=== PATIENT | male | born 1980 | race Asian ===

== ENCOUNTER 2017-05-25 20:01 | Emergency (ER) | payer MEDICAID, OTHER ==
[~2017-05-25] VITALS: Ht 172.7 cm; Wt 68.0 kg
[~2017-05-25 20:01] MED LIST: KEFLEX500 MG ORAL
[2017-05-25 20:07] VITALS: BP 118/70
[2017-05-25] MEDS ORDERED: Sodium Chloride 500ML 500 ML IV ONE (20:30)
[2017-05-25 20:45] LABS: BASOPHILS % (AUTO) 1.2 % (0.0-2.0); EOSINOPHILS % (AUTO) 0.8 % (0.0-3.0); MEAN CORPUSCULAR HEMOGLOBIN 32.8 PG (27.0-31.0); MEAN CORPUSCULAR HGB CONC 33.9 G/DL (32.0-36.0); MEAN CORPUSCULAR VOLUME 97 FL (80-99); MEAN PLATELET VOLUME 7.2 FL (6.5-10.1); MONOCYTES % (AUTO) 4.2 % (1.0-10.0); NEUTROPHILS % (AUTO) 44.8 % (45.0-75.0); PLATELET COUNT 143 K/UL (150-450); RED BLOOD COUNT 4.21 M/UL (4.70-6.10); RED CELL DISTRIBUTION WIDTH 11.4 % (11.6-14.8); WHITE BLOOD COUNT 8.4 K/UL (4.8-10.8)
[2017-05-25 20:55] LABS: ANION GAP 8 mmol/L (5-15); CALCIUM 8.5 MG/DL (8.5-10.1); CARBON DIOXIDE 28 MMOL/L (21-32); CHLORIDE 106 MMOL/L (98-107); CREATININE 1.3 MG/DL (0.55-1.30); GLOMERULAR FILTRATION RATE > 60 mL/min (>60); POTASSIUM 3.8 MMOL/L (3.5-5.1); SODIUM 142 MMOL/L (136-145)
[2017-05-25 21:06] LABS: ALANINE AMINOTRANSFERASE 65 U/L (12-78); ALCOHOL 187 mg/dL; ASPARTATE AMINO TRANSFERASE 50 U/L (15-37); TOTAL PROTEIN 8.2 G/DL (6.4-8.2)
[2017-05-25 21:07] LABS: ACETAMINOPHEN < 2 MCG/ML (10-30)
[2017-05-25 22:07] VITALS: BP 114/61
[2017-05-25 22:44] VITALS: BP 114/61
--- NOTE | 2017-05-25 22:49 | Emergency Room Report ---
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 Allergies: Coded Allergies: No Known Allergies (Unverified , 02/28/15) Patient History Past Medical History: none Past Surgical History: none Pertinent Family History: none Social History: Reports: alcohol use Immunizations: UTD Reviewed Nursing Documentation: PMH: Agreed, PSxH: Agreed Nursing Documentation-PMH Past Medical History: No History, Except For Hx Cardiac Problems: No - Testicular cancer Review of Systems All Other Systems: negative except mentioned in HPI Physical Exam Vital Signs Date Time Temp Pulse Resp B/P (MAP) Pulse Ox O2 Delivery O2 Flow Rate FiO2 05/25/17 19:55 98.2 100 16 118/70 98 Room Air Sp02 EP Interpretation: reviewed, normal General Appearance: normal inspection, well appearing, no apparent distress, alert, GCS 15, non-toxic Head: normocephalic, atraumatic Eyes: bilateral eye PERRL, bilateral eye EOMI ENT: normal ENT inspection, hearing grossly normal, normal voice Neck: normal inspection, full range of motion, supple, no bony tend Respiratory: normal inspection, lungs clear, normal breath sounds, no respiratory distress, no retraction, no wheezing Cardiovascular #1: regular rate, rhythm, no edema Gastrointestinal: normal inspection, normal bowel sounds, non tender, soft, no guarding, no hernia Genitourinary: no CVA tenderness Musculoskeletal: normal inspection, back normal, normal range of motion, Kyle' s Sign negative Neurologic: normal inspection, alert, responsive, speech normal Psychiatric: normal inspection, judgement/insight normal, mood/affect normal Skin: normal inspection, normal color, no rash Medical Decision Making Diagnostic Impression: Primary Impression: Acute alcoholic intoxication Qualified Codes: F10.929 - Alcohol use, unspecified with intoxication, unspecified ER Course ETOH level 187 Patient observed in ER for ~3 hours until sober Ambulating with steady gait, tolerating PO Asked for, received sandwich Labs reviewed: no leuks. H&H stable. No metabolic abnormalities. Mild AST elevation Advised on ETOH abuse ER course: Patient has remained stable during ED stay. Patient is to be discharged to home. Patient is instructed to follow up with their primary care doctor within 5 days. Strict return precautions discussed with patient such as fever, chills, worsening/severe pain, nausea, vomiting, which may indicate severe illness. Patient verbalizes understanding and agrees with plan. Please note that this Emergency Department Report was dictated using [employer] technology software, occasionally this can lead to erroneous entry secondary to interpretation by the dictation equipment Last Vital Signs Date Time Temp Pulse Resp B/P (MAP) Pulse Ox O2 Delivery O2 Flow Rate FiO2 05/25/17 22:07 98.2 89 18 114/61 97 Room Air Status: improved Disposition: HOME, SELF-CARE Condition: Improved Referrals: NON PHYSICIAN (PCP) Patient Instructions: Alcohol Intoxication, [id number] ROLF NG M.D. May 25, 2017 22:49
== END 2017-05-25 22:44 | disposition home or self-care (01) ==
LOC: EDBD 20:01 → EMR 21:17
DX: F10.129 Alcohol abuse with intoxication, unspecified (principal); Z85.47 Personal history of malignant neoplasm of testis
CPT/HCPCS: 36415; 80053; 80329; 85025; 96361; 96374; 99284

== ENCOUNTER 2018-01-23 02:57 | Emergency (ER) | payer OTHER ==
[~2018-01-23] VITALS: Ht 172.7 cm; Wt 72.6 kg
[2018-01-23] MEDS ORDERED: PROTONIX40 MG ORAL (03:00)
[2018-01-23] MEDS ORDERED: TRAMADOL HCL E100 MG ORAL (03:00)
[2018-01-23] MEDS ORDERED: INDERAL LA60 MG ORAL (03:00)
[2018-01-23 03:05] VITALS: BP 106/62
[2018-01-23] MEDS ORDERED: Pantoprazole Inj IVP ONE (03:15)
--- NOTE | 2018-01-23 03:18 | Emergency Room Report ---
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 He is currently under chemotherapy. He also has history of alcohol abuse with esophageal varices diagnosed on endoscopy about a year ago. He presents with chief complaint of vomiting blood. He was drinking vodka tonight and had vomiting and noticed about half a couple blood. Similar symptom in the past. No pain. No fever or chills. Still for little nauseous. He drank a pint of vodka tonight. Denies any drug use. No diarrhea. No black stool. Allergies: Coded Allergies: No Known Allergies (Unverified , 02/28/15) Patient History Past Medical History: see triage record, old chart reviewed Past Surgical History: other Pertinent Family History: none Social History: Reports: alcohol use Immunizations: other Reviewed Nursing Documentation: PMH: Agreed; PSxH: Agreed Nursing Documentation-PMH Hx Cardiac Problems: No - Testicular cancer Hx Gastrointestinal Problems: Yes - TESTICULAR CA Review of Systems Eye: Denies: eye pain, blurred vision ENT: Denies: ear pain, nose congestion, throat swelling Respiratory: Denies: cough, shortness of breath Cardiovascular: Denies: chest pain, palpitations Gastrointestinal: Reports: nausea, vomiting, hematemesis; Denies: abdominal pain, diarrhea Musculoskeletal: Denies: back pain, joint pain Skin: Denies: rash Neurological: Denies: headache, numbness Endocrine: Denies: increased thirst, increased urine Hematologic/Lymphatic: Denies: easy bruising All Other Systems: negative except mentioned in HPI Physical Exam Vital Signs Date Time Temp Pulse Resp B/P (MAP) Pulse Ox O2 Delivery O2 Flow Rate FiO2 01/23/18 02:54 98.0 74 16 108/74 98 Room Air 98.1 vitals normal Sp02 EP Interpretation: reviewed, normal General Appearance: well appearing, no apparent distress, alert, other - strong smell of alcoholic beverage Head: normocephalic, atraumatic Eyes: bilateral eye PERRL, bilateral eye EOMI ENT: hearing grossly normal, normal pharynx Neck: full range of motion, supple, no meningismus Respiratory: chest non-tender, lungs clear, normal breath sounds Cardiovascular #1: regular rate, rhythm, no murmur Gastrointestinal: normal bowel sounds, non tender, no mass, no organomegaly, no bruit, non-distended Musculoskeletal: back normal, gait/station normal, normal range of motion Psychiatric: mood/affect normal Skin: warm/dry Medical Decision Making Diagnostic Impression: Primary Impression: Hematemesis Qualified Codes: K92.0 - Hematemesis Additional Impression: Acute alcoholic intoxication Qualified Codes: F10.929 - Alcohol use, unspecified with intoxication, unspecified ER Course Patient presents with hematemesis. He said that he has esophageal variceal seen on EGD. This is secondary to his alcohol abuse. No evidence of continual bleeding. Hemoglobin stable. No evidence of any perforation on chest x-ray. He is already on a proton pump inhibitor. We'll discharge home in the morning. Lab Results Impression labs normal Chest X-Ray Diagnostic Results Chest X-Ray Diagnostic Results : Chest X-Ray Ordered: Yes # of Views/Limited/Complete: 1 View Indication: Chest Pain EP Interpretation: Yes Interpretation: no consolidation, no effusion, no pneumothorax, no acute cardiopulmonary disease Impression: No acute disease Electronically Signed by: Tony Aragon MD Last Vital Signs Date Time Temp Pulse Resp B/P (MAP) Pulse Ox O2 Delivery O2 Flow Rate FiO2 01/23/18 03:05 98.1 79 18 106/62 95 Room Air 98.1 Status: improved Disposition: HOME, SELF-CARE Condition: Stable Additional Instructions: Abstain from alcohol. Follow-up with your DrSterling in 2-3 days for recheck. Return if worse. TONY ARAGON M.D. Jan 23, 2018 03:18
[2018-01-23 03:21] LABS: EOSINOPHILS % (AUTO) 1.8 % (0.0-3.0); HEMOGLOBIN 12.9 G/DL (14.2-18.0); LYMPHOCYTES % (AUTO) 49.9 % (20.0-45.0); MEAN CORPUSCULAR VOLUME 92 FL (80-99); MONOCYTES % (AUTO) 8.4 % (1.0-10.0); NEUTROPHILS % (AUTO) 38.9 % (45.0-75.0); PLATELET COUNT 154 K/UL (150-450); RED BLOOD COUNT 4.14 M/UL (4.70-6.10); RED CELL DISTRIBUTION WIDTH 11.6 % (11.6-14.8); WHITE BLOOD COUNT 7.2 K/UL (4.8-10.8)
[2018-01-23 03:49] LABS: APPEARANCE,URINE CLEAR; BILIRUBIN, URINE NEGATIVE (NEGATIVE); GLUCOSE, URINE (UA) NEGATIVE (NEGATIVE); KETONES,URINE NEGATIVE (NEGATIVE); LEUKOCYTE ESTERASE ,URINE NEGATIVE (NEGATIVE); NITRITE,URINE NEGATIVE (NEGATIVE); PH,URINE 5 (4.5-8.0); UROBILINOGEN,URINE NORMAL (NORMAL)
[2018-01-23 03:53] LABS: COLOR,URINE YELLOW; PROTEIN,URINE NEGATIVE (NEGATIVE)
[2018-01-23 03:53] LABS: ANION GAP 10 mmol/L (5-15); BLOOD UREA NITROGEN 21 mg/dL (7-18); CALCIUM 8.3 MG/DL (8.5-10.1); CARBON DIOXIDE 26 MMOL/L (21-32); CHLORIDE 108 MMOL/L (98-107); POTASSIUM 3.9 MMOL/L (3.5-5.1); SODIUM 144 MMOL/L (136-145)
[2018-01-23 03:58] LABS: ALANINE AMINOTRANSFERASE 63 U/L (12-78); ALBUMIN 3.8 G/DL (3.4-5.0); ALKALINE PHOSPHATASE 86 U/L (46-116); ASPARTATE AMINO TRANSFERASE 61 U/L (15-37); BILIRUBIN,TOTAL 0.9 MG/DL (0.2-1.0)
[2018-01-23 04:04] LABS: INR 1.1 (0.9-1.1)
[2018-01-23 05:15] VITALS: BP 106/68
[2018-01-23 05:42] VITALS: BP 106/68
--- NOTE | 2018-01-23 09:31 | Diagnostic Imaging Report ---
Indication: Chest pain Technique: XRAY Chest 1v Comparison: None Findings: Heart size and mediastinal contours are within normal limits. There is no focal consolidation, pneumothorax or pleural effusion. Osseous structures demonstrate no acute abnormality. Impression: No radiographic evidence of acute cardiopulmonary disease.
== END 2018-01-23 05:42 | disposition home or self-care (01) ==
LOC: EDBD 02:57 → EMR 03:17
DX: C62.90 Malignant neoplasm of unspecified testis, unspecified whether descended or undescended (principal); F10.929 Alcohol use, unspecified with intoxication, unspecified; K92.0 Hematemesis
CPT/HCPCS: 36415; 71045; 80053; 80307; 80329; 81001; 85025; 85610; 85730; 96361; 96374; 96375; 99284; C9113; J2405

== ENCOUNTER 2018-09-15 17:55 | Emergency (ER) | payer OTHER ==
[~2018-09-15] VITALS: Ht 175.3 cm; Wt 81.6 kg
[2018-09-15 17:55] VITALS: BP 141/82
[~2018-09-15 17:55] MED LIST changes: +INDERAL LA60 MG ORAL; +PROTONIX40 MG ORAL; +TRAMADOL HCL E100 MG ORAL
--- NOTE | 2018-09-15 18:00 | NUR ---
ED Nurse Note: BROUGHT IN BY RA 29 FROM A BAR DUE TO ETOH. PER EMS, PT HAS BEEN TO MANY ED FOR ETOH FOR PAST FOUR DAYS. PT IS AROUSAL TO VOICE BUT DOES NOT RESPOND TO ANY ANSWERS. RIGHT EJ 18G WAS PLACED BY EMS.
--- NOTE | 2018-09-15 18:02 | NUR ---
ED Nurse Note: Addendum: 09/15/18 at 1824 by [email or web address] ED Nurse Note: PER AZUL BS IS 134
--- NOTE | 2018-09-15 18:15 | NUR ---
ED Nurse Note: ALL BLOOD SPECIMENS AND URINE COLLECTED AND SENT DOWN TO THE LAB.
--- NOTE | 2018-09-15 18:29 | Emergency Room Report ---
History of Present Illness General Chief Complaint: Alcohol Intoxication Source: EMS Present Illness HPI Patient presents with altered level of consciousness and alleged alcohol ingestion. The patient's been transported by paramedics four times in the last 4 days for the same problem. They deny seeing any head trauma. There is no seizure activity. The patient's been evaluated here recently for alcohol intoxication. The patient is unable to give a history at this time. Even with sternal rub the patient will not answer. He does open his eyes and try to lift up his head at that time. The patient does have a positive gag. Eval for punching window 2014. Had delirium and d/c to father at that time ( eval by psych). Seen for hematemesis 02/02. Alleged varices. Allergies: Coded Allergies: No Known Allergies (Unverified , 02/28/15) Patient History Limited by: medical condition Past Medical History: see triage record, old chart reviewed Social History: Reports: alcohol use Social History Narrative has an address Reviewed Nursing Documentation: PMH: Agreed; PSxH: Agreed Nursing Documentation-PMH Hx Cardiac Problems: No - Testicular cancer Hx Gastrointestinal Problems: Yes - TESTICULAR CA Review of Systems All Other Systems: limited Physical Exam Vital Signs Date Time Temp Pulse Resp B/P (MAP) Pulse Ox O2 Delivery O2 Flow Rate FiO2 09/15/18 17:49 99.0 110 16 148/100 100 09/15/18 17:55 Room Air Sp02 EP Interpretation: reviewed, normal General Appearance: no apparent distress, lethargic - not answering questions Head: normocephalic, atraumatic Eyes: bilateral eye abnormal EOM - nystagmus, bilateral eye Scleral Injection ENT: moist mucus membranes Neck: supple Respiratory: lungs clear, normal breath sounds Cardiovascular #1: regular rate, rhythm Cardiovascular #2: 2+ radial (R) Gastrointestinal: normal inspection, non tender, no mass, non-distended, decreased bowel sounds Musculoskeletal: back normal, normal range of motion Neurologic: responsive - minimally , other - not speaking, min response to pain , + gag Psychiatric: other - stupor Skin: normal inspection, warm/dry Medical Decision Making Diagnostic Impression: Primary Impression: Acute alcoholic intoxication Qualified Codes: F10.929 - Alcohol use, unspecified with intoxication, unspecified Additional Impression: Suicidal ideation ER Course Patient presents with alcohol and decreased mentation. Differential includes colic intoxication, electrolyte abnormality, brain bleed amongst others. Evaluation will be with EKG, CT the head chest x-ray, labs. The patient will receive IV hydration here. He'll need reevaluation when he is sober. BAL elevated. Slight anemia. CMP with elevated liver function tests, slight hypernatremia and hypokalemia, elevated CPK. Patient improved. States thoughts of ending his life. No plan. Will need repeat BAL and eval regarding SI in AM. Placed on medical hold. Asked if took [facility] meds - states librium and ativan. Never other antipsychotics according to patient. Signed out to Dr. Brewer. Laboratory Tests Test 09/15/18 18:10 White Blood Count 8.3 K/UL (4.8-10.8) Red Blood Count 4.16 M/UL (4.70-6.10) L Hemoglobin 13.8 G/DL (14.2-18.0) L Hematocrit 38.5 % (42.0-52.0) L Mean Corpuscular Volume 93 FL (80-99) Mean Corpuscular Hemoglobin 33.1 PG (27.0-31.0) H Mean Corpuscular Hemoglobin Concent 35.8 G/DL (32.0-36.0) Red Cell Distribution Width 12.6 % (11.6-14.8) Platelet Count 167 K/UL (150-450) Mean Platelet Volume 5.0 FL (6.5-10.1) L Neutrophils (%) (Auto) 45.3 % (45.0-75.0) Lymphocytes (%) (Auto) 39.8 % (20.0-45.0) Monocytes (%) (Auto) 12.4 % (1.0-10.0) H Eosinophils (%) (Auto) 0.9 % (0.0-3.0) Basophils (%) (Auto) 1.7 % (0.0-2.0) Urine Color Pale yellow Urine Appearance Clear Urine pH 6 (4.5-8.0) Urine Specific [place] 1.005 (1.005-1.035) Urine Protein Negative (NEGATIVE) Urine Glucose (UA) Negative (NEGATIVE) Urine Ketones Negative (NEGATIVE) Urine Blood Negative (NEGATIVE) Urine Nitrite Negative (NEGATIVE) Urine Bilirubin Negative (NEGATIVE) Urine Urobilinogen Normal MG/DL (0.0-1.0) Urine Leukocyte Esterase Negative (NEGATIVE) Sodium Level 147 MMOL/L (136-145) H Potassium Level 3.1 MMOL/L (3.5-5.1) L Chloride Level 105 MMOL/L (98-107) Carbon Dioxide Level 24 MMOL/L (21-32) Anion Gap 18 mmol/L (5-15) H Blood Urea Nitrogen 15 mg/dL (7-18) Creatinine 1.0 MG/DL (0.55-1.30) Estimate Glomerular Filtration Rate > 60 mL/min (>60) Glucose Level 167 MG/DL (74-106) H Calcium Level 8.6 MG/DL (8.5-10.1) Total Bilirubin 1.1 MG/DL (0.2-1.0) H Direct Bilirubin 0.1 MG/DL (0.0-0.3) Aspartate Amino Transferase (AST) 127 U/L (15-37) H Alanine Aminotransferase (ALT) 68 U/L (12-78) Alkaline Phosphatase 121 U/L (46-116) H Total Creatine Kinase 484 U/L (26-308) H Total Protein 7.6 G/DL (6.4-8.2) Albumin 3.7 G/DL (3.4-5.0) Globulin 3.9 g/dL Urine Opiates Screen Negative (NEGATIVE) Urine Barbiturates Screen Negative (NEGATIVE) Phencyclidine (PCP) Screen Negative (NEGATIVE) Urine Amphetamines Screen Negative (NEGATIVE) Urine Benzodiazepines Screen Negative (NEGATIVE) Urine Cocaine Screen Negative (NEGATIVE) Urine Marijuana (THC) Screen Negative (NEGATIVE) Serum Alcohol 473 mg/dL EKG Diagnostic Results Rate: tachycardiac Rhythm: NSR ST Segments: no acute changes - R axis Rhythm Strip Diag. Results EP Interpretation: yes Rhythm: no PVC's, no ectopy, other - ST Chest X-Ray Diagnostic Results Chest X-Ray Diagnostic Results : Chest X-Ray Ordered: Yes # of Views/Limited/Complete: 1 View Indication: Other EP Interpretation: Yes Interpretation: no consolidation, no effusion, no pneumothorax Impression: No acute disease CT/MRI/US Diagnostic Results CT/MRI/US Diagnostic Results : Imaging Test Ordered: head Impression no IC abnormality Last Vital Signs Date Time Temp Pulse Resp B/P (MAP) Pulse Ox O2 Delivery O2 Flow Rate FiO2 09/15/18 19:17 110 22 Room Air 09/15/18 19:17 99.0 134/81 95 Status: improved Disposition: XFER TO PSYCH HOSP/UNIT Condition: Improved Yossi Ivey MD Sep 15, 2018 18:29
[2018-09-15 18:31] LABS: BASOPHILS % (AUTO) 1.7 % (0.0-2.0); EOSINOPHILS % (AUTO) 0.9 % (0.0-3.0); HEMATOCRIT 38.5 % (42.0-52.0); HEMOGLOBIN 13.8 G/DL (14.2-18.0); LYMPHOCYTES % (AUTO) 39.8 % (20.0-45.0); MEAN CORPUSCULAR VOLUME 93 FL (80-99); MONOCYTES % (AUTO) 12.4 % (1.0-10.0); NEUTROPHILS % (AUTO) 45.3 % (45.0-75.0); PLATELET COUNT 167 K/UL (150-450); RED BLOOD COUNT 4.16 M/UL (4.70-6.10); RED CELL DISTRIBUTION WIDTH 12.6 % (11.6-14.8); WHITE BLOOD COUNT 8.3 K/UL (4.8-10.8)
[2018-09-15 18:34] LABS: APPEARANCE,URINE CLEAR; BILIRUBIN, URINE NEGATIVE (NEGATIVE); COLOR,URINE PALE YELLOW; GLUCOSE, URINE (UA) NEGATIVE (NEGATIVE); KETONES,URINE NEGATIVE (NEGATIVE); LEUKOCYTE ESTERASE ,URINE NEGATIVE (NEGATIVE); NITRITE,URINE NEGATIVE (NEGATIVE); PH,URINE 6 (4.5-8.0); PROTEIN,URINE NEGATIVE (NEGATIVE); UROBILINOGEN,URINE NORMAL MG/DL (0.0-1.0)
--- NOTE | 2018-09-15 18:42 | NUR ---
ED Nurse Note: PT SENT DOWN FOR CT.
[2018-09-15 18:49] LABS: ANION GAP 18 mmol/L (5-15); BLOOD UREA NITROGEN 15 mg/dL (7-18); CALCIUM 8.6 MG/DL (8.5-10.1); CARBON DIOXIDE 24 MMOL/L (21-32); CHLORIDE 105 MMOL/L (98-107); POTASSIUM 3.1 MMOL/L (3.5-5.1); SODIUM 147 MMOL/L (136-145)
[2018-09-15 18:59] LABS: ALANINE AMINOTRANSFERASE 68 U/L (12-78); ALBUMIN 3.7 G/DL (3.4-5.0); ALKALINE PHOSPHATASE 121 U/L (46-116); ASPARTATE AMINO TRANSFERASE 127 U/L (15-37); BILIRUBIN,TOTAL 1.1 MG/DL (0.2-1.0); CREATINE KINASE 484 U/L (26-308)
[2018-09-15 19:03] LABS: BILIRUBIN,DIRECT 0.1 MG/DL (0.0-0.3)
[2018-09-15 19:17] VITALS: BP 134/81
--- NOTE | 2018-09-15 19:17 | NUR ---
ED Nurse Note: received report from RN tanesha, pt currently sleeping but arousable to shake and voice, pt AA&ox3, unable to state time at this time, pt lethargic and drowsy, PERRLA, skin warm and dry, resp even and unlabored on RA, -n/v/d at this time, VSS, will cont monitor. pt cleaned and turned and changed into new gown, provided w/ warm blanket for comfort. pt advised to notify staff if needed assist.
--- NOTE | 2018-09-15 19:17 | NUR ---
HAND-OFF: Report given to LAWRENCE Beckman. No s/s of distress.
--- NOTE | 2018-09-15 22:52 | NUR ---
ED Nurse Note: patient resting comfortably, IV hydration running.
--- NOTE | 2018-09-15 23:15 | NUR ---
ED Nurse Note: Patient able to ambulate to restroom, minimal assist.
--- NOTE | 2018-09-15 23:55 | NUR ---
ED Nurse Note: Patient sleeping, no s/s of acute distress.
--- NOTE | 2018-09-16 02:25 | NUR ---
ED Nurse Note: Patient resting comfortably. IV fluids running.
[2018-09-16] MEDS ORDERED: LORazepam Inj 2mg/ml 1ml IV ONE ×2 (03:15→09:45)
--- NOTE | 2018-09-16 03:30 | NUR ---
ED Nurse Note: Patient is resting comfortably, no s/s of acute distress.
[2018-09-16] MEDS ORDERED: Mylanta II UD 30ml ORAL ONE (03:45)
[2018-09-16] MEDS ORDERED: Dicyclomine HCl 10mg/5ml oral soln ORAL ONE (03:45)
[2018-09-16] MEDS ORDERED: Lidocaine 2% Visc 15ml soln ORAL ONE (03:45)
[2018-09-16] MEDS ORDERED: Morphine Sulfate 4mg/ml Inj (IV USE ONLY) IVP ONE (04:15)
--- NOTE | 2018-09-16 04:42 | NUR ---
ED Nurse Note: Patient tolerated medication well, has no complaints of pain at this time.
--- NOTE | 2018-09-16 06:20 | NUR ---
ED Nurse Note: Patient request more pain medication, medication administered at this time, will reassess pain shortly.
[2018-09-16] MEDS ORDERED: Ketorolac 30mg Inj IV ONE (06:30)
--- NOTE | 2018-09-16 07:05 | NUR ---
ED Nurse Note: received patient in bed. patient is resting comfortably in bed, in no acute distress. RT EJ IV access is patent, dry, intact, without any complication.
--- NOTE | 2018-09-16 08:29 | NUR ---
ED Nurse Note: patient ambulated to use the restroom with very minimal assistance.
--- NOTE | 2018-09-16 08:31 | NUR ---
ED Nurse Note: patient is alert and awake x4, ambulatory with minimal assistance. patient c/o abdominal pain 03/27, notified Dr. Lopez.
--- NOTE | 2018-09-16 11:31 | Diagnostic Imaging Report ---
Indication: Chest pain Technique: One view of the chest Comparison: 01/23/2018 Findings: The heart is borderline enlarged. Lungs and pleural spaces are clear. Impression: No acute process
--- NOTE | 2018-09-16 11:33 | Diagnostic Imaging Report ---
Indication: Altered level of consciousness Technique: Continuous helical CT scanning of the head was performed without intravenous contrast material. Axial and coronal 5 mm sections were generated. Radiation dose was minimized using automated exposure control Dose: Total Dose Length Product - DLP 1369.[address] Dose Index - CTDIvol(s) 70.38 mGy. Comparison: none Findings: There is slight image degradation due to motion artifact. The ventricular system is normal in size and configuration. There is no shift of midline structures. No abnormal extra-axial fluid collections are noted. There is no evidence of intracerebral bleeding. No other abnormal high or low density areas are noted within the brain. Normal louis-white differentiation. The mastoids are clear. The calvarium is intact. Impression: Normal CT scan of the head without contrast material. This agrees with the preliminary interpretation provided overnight by [facility]. The CT scanner at [facility] is accredited by the [employer] and the scans are performed using protocols designed to limit radiation exposure to as low as reasonably achievable to attain images of sufficient resolution adequate for diagnostic evaluation.
--- NOTE | 2018-09-16 11:51 | NUR ---
ED Nurse Note: patient is eating lunch tray. water, juice also provided
--- NOTE | 2018-09-16 12:20 | NUR ---
ED Nurse Note: report given to Joe BRAVO at [place].
[2018-09-16] MEDS ORDERED: LORazepam Inj 2mg/ml 1ml ONE (13:08)
--- NOTE | 2018-09-16 13:15 | NUR ---
ED Nurse Note: patient given ativan 1mg IVP as ordered by Dr. Lopez. VSS. patient tolerated medication without any complication.
[2018-09-16 13:16] VITALS: BP 156/89
[2018-09-16 13:17] VITALS: BP 156/89
--- NOTE | 2018-09-16 13:19 | NUR ---
ER DISCHARGE NOTE: Patient is cleared to be tranferred to [facility] per ERMD, pt is aox4, on room air, with stable vital signs. pt id band and iv site removed without complications, no bleeding noted. pt is able to ambulate with steady gait. all belongings given to ambulance personnel.
--- NOTE | 2018-09-17 21:29 | Cardiology Report ---
APPROVED REPORT EKG Measurement Heart [id number] CO [id number] Sinus tachycardia Rightward axis Borderline ECG
== END 2018-09-16 13:19 ==
LOC: EDBD 17:55 → EMR 18:53
DX: F10.129 Alcohol abuse with intoxication, unspecified (principal); R45.851 Suicidal ideations; Z85.47 Personal history of malignant neoplasm of testis
CPT/HCPCS: 36415; 70450; 71045; 80053; 80307; 80329; 81003; 82248; 82550; 85025; 93005; 96361; 96374; 96375; 99284; J1885; J2270; S0028

== ENCOUNTER 2019-03-17 12:00 | Emergency (ER) | payer OTHER ==
[~2019-03-17] VITALS: Ht 172.7 cm; Wt 68.0 kg
[~2019-03-17 12:00] MED LIST changes: +PRILOSEC OTC20 MG ORAL; +ZOFRAN4 M3 ORAL
[2019-03-17] MEDS ORDERED: PROTONIX20 MG ORAL (12:09)
[2019-03-17] MEDS ORDERED: LIBRIUM10 MG ORAL (12:09)
[2019-03-17] MEDS ORDERED: GABAPENTIN300 MG ORAL (12:09)
[2019-03-17] MEDS ORDERED: TRAMADOL HCL50 MG ORAL (12:09)
--- NOTE | 2019-03-17 12:13 | NUR ---
ED Nurse Note: PT BROUGHT IN TO ER TODAY FROM HOME BY RA29. AOX4. PT STATES HE CALLED 911 DUE TO HX OF ALCOHOLISM AND IS SEEKING HELP. PT STATES HE DRANK TWO BOTTLES OF WHISKEY AND MULTIPLE BEERS TODAY. PT STATES HE HAS HX OF GASTRIC VARISCES WELL. PT STATES HE WAS PRESCRIBED LIBRIUM BUT STOPPED TAKING IT DUE TO CONTINUED ALCOHOL CONSUMPTION. PT STATES HE IS FOLLOWING UP WITH HIS PRIMARY DOCTOR REGARDING HIS ALCOHOLISM.
[2019-03-17 12:18] VITALS: BP 132/82
--- NOTE | 2019-03-17 12:22 | NUR ---
ED Nurse Note: SPOKE WITH PT'S NURSE EXECUTIVE, TABITHA, FROM [facility], WHO STATES HE WILL BE COMING TO THE ER TO SEE HIS PT.
[2019-03-17] MEDS ORDERED: Metoclopramide 10mg/2ml Inj IVP ONE (12:30)
[2019-03-17 12:37] LABS: HEMATOCRIT 39.4 % (42.0-52.0); HEMOGLOBIN 13.5 G/DL (14.2-18.0); MEAN CORPUSCULAR VOLUME 92 FL (80-99); PLATELET COUNT 87 K/UL (150-450); RED BLOOD COUNT 4.26 M/UL (4.70-6.10); RED CELL DISTRIBUTION WIDTH 11.3 % (11.6-14.8)
[2019-03-17 12:54] LABS: ANION GAP 15 mmol/L (5-15); BLOOD UREA NITROGEN 12 mg/dL (7-18); CALCIUM 8.3 MG/DL (8.5-10.1); CARBON DIOXIDE 25 MMOL/L (21-32); CHLORIDE 105 MMOL/L (98-107); CREATININE 0.8 MG/DL (0.55-1.30); POTASSIUM 3.4 MMOL/L (3.5-5.1); SODIUM 145 MMOL/L (136-145)
--- NOTE | 2019-03-17 12:55 | NUR ---
ED Nurse Note: XRAY AT BEDSIDE.
[2019-03-17 13:07] LABS: ALANINE AMINOTRANSFERASE 84 U/L (12-78); ALBUMIN 3.8 G/DL (3.4-5.0); ALBUMIN/GLOBULIN RATIO 1.2 (1.0-2.7); ALKALINE PHOSPHATASE 85 U/L (46-116); ASPARTATE AMINO TRANSFERASE 218 U/L (15-37); BILIRUBIN,TOTAL 2.8 MG/DL (0.2-1.0); CREATINE KINASE 1165 U/L (26-308)
[2019-03-17 13:08] LABS: BILIRUBIN,DIRECT 0.2 MG/DL (0.0-0.3)
[2019-03-17 13:45] LABS: APPEARANCE,URINE CLEAR; BILIRUBIN, URINE NEGATIVE (NEGATIVE); COLOR,URINE COLORLESS; GLUCOSE, URINE (UA) NEGATIVE (NEGATIVE); KETONES,URINE NEGATIVE (NEGATIVE); LEUKOCYTE ESTERASE ,URINE NEGATIVE (NEGATIVE); NITRITE,URINE NEGATIVE (NEGATIVE); PH,URINE 6.5 (4.5-8.0); PROTEIN,URINE NEGATIVE (NEGATIVE); UROBILINOGEN,URINE NORMAL MG/DL (0.0-1.0)
--- NOTE | 2019-03-17 14:21 | Diagnostic Imaging Report ---
Indication: Cough Technique: One view of the chest Comparison: 09/14/2018 Findings: Lungs and pleural spaces are clear. Heart size is normal. No significant interim change Impression: No acute process
--- NOTE | 2019-03-17 15:16 | Emergency Room Report ---
History of Present Illness General Chief Complaint: Alcohol Intoxication Source: EMS Present Illness HPI 38-year-old male with history of alcohol abuse and liver cirrhosis is here requesting to be's as he wishes to be sober. Patient reports that he has been drinking alcohol on daily basis for years, her last alcoholic beverage was this morning. Patient reports that he was dropped off here by paramedics and was told by his complex case manager that he is going to be detox in the emergency room. Denies chest pain, shortness of breath, palpitation, abdominal pain, nausea vomiting. Patient reports that he has no thoughts of hurting herself or hurting ADLs. After doing blood work and giving him multiple rounds of fluid patient starts yelling when he has been told that he needs to follow-up with his complex case manager and after talking to his complex case manager patient to go home in order for them to take him to sober living. Patient was in the impression that we are going to detox him at the emergency room. Patient does not wait for second rounds of CK to be drawn and leaves AGAINST MEDICAL ADVICE. Allergies: Coded Allergies: No Known Allergies (Unverified , 02/28/15) Patient History Past Medical History: see triage record Past Surgical History: unable to obtain Pertinent Family History: none Social History: Reports: alcohol use Immunizations: UTD Reviewed Nursing Documentation: PMH: Agreed; PSxH: Agreed Nursing Documentation-PMH Hx Cardiac Problems: No - Testicular cancer Hx Hypertension: Yes Hx Cancer: Yes - TESTICULAR STAGE 2 Hx Gastrointestinal Problems: Yes - TESTICULAR CA Review of Systems All Other Systems: negative except mentioned in HPI Physical Exam Vital Signs Date Time Temp Pulse Resp B/P (MAP) Pulse Ox O2 Delivery O2 Flow Rate FiO2 03/17/19 11:54 98.2 102 16 136/84 (101) 99 Room Air Sp02 EP Interpretation: reviewed, normal General Appearance: no apparent distress, alert, GCS 15, non-toxic Head: normocephalic, atraumatic Eyes: bilateral eye normal inspection, bilateral eye PERRL ENT: hearing grossly normal, normal pharynx, no angioedema, normal voice Neck: full range of motion, supple/symm/no masses Respiratory: chest non-tender, lungs clear, normal breath sounds, no rhonchi, no respiratory distress, no wheezing, speaking full sentences Cardiovascular #1: regular rate, rhythm, no edema, no murmur Gastrointestinal: normal bowel sounds, non tender, soft, no mass, no organomegaly, no bruit, non-distended Genitourinary: normal inspection, no CVA tenderness Musculoskeletal: back normal, gait/station normal, normal range of motion, non- tender, no calf tenderness Neurologic: alert, oriented x3, responsive, motor strength/tone normal, sensory intact, speech normal Psychiatric: judgement/insight normal, memory normal, mood/affect normal, no suicidal/homicidal ideation Skin: no rash, warm/dry Lymphatic: no adenopathy Medical Decision Making PA Attestation All diagnoses and treatment plans were reviewed and discussed with my supervising physician Dr. Wilson Diagnostic Impression: Primary Impression: Alcohol dependence ER Course 38-year-old male with history of alcohol abuse and liver cirrhosis is here requesting to be's as he wishes to be sober. Patient reports that he has been drinking alcohol on daily basis for years, her last alcoholic beverage was this morning. Patient reports that he was dropped off here by paramedics and was told by his complex case manager that he is going to be detox in the emergency room. Denies chest pain, shortness of breath, palpitation, abdominal pain, nausea vomiting. Patient reports that he has no thoughts of hurting herself or hurting ADLs. After doing blood work and giving him multiple rounds of fluid patient starts yelling when he has been told that he needs to follow-up with his complex case manager and after talking to his complex case manager patient to go home in order for them to take him to sober living. Patient was in the impression that we are going to detox him at the emergency room. Patient does not wait for second rounds of CK to be drawn and leaves AGAINST MEDICAL ADVICE. Ddx considered but are not limited to: generalized anxiety disorder, panic attack, depression with psychotic features, bipolar disorder, drug overdose Vital signs: are WNL, pt. is afebrile H&PE are most consistent with: Alcohol dependence ORDERS: Psychiatric order set ED INTERVENTIONS: 2 rounds of NS bolus, Pepcid DISCHARGE: At this time pt. is stable for d/c to home. Will provide printed patient care instructions, and any necessary prescriptions. Care plan and follow up instructions have been discussed with the patient prior to discharge. Patient is AGAINST MEDICAL ADVICE however stable at time of discharge no abdominal CT is needed as patient recently had a CT scan of abdomen with a week ago at [facility] EKG Diagnostic Results Rate: normal Rhythm: NSR ST Segments: no acute changes Last Vital Signs Date Time Temp Pulse Resp B/P (MAP) Pulse Ox O2 Delivery O2 Flow Rate FiO2 03/17/19 12:18 98.4 96 16 132/82 100 Room Air Disposition: HOME, SELF-CARE Condition: Stable Referrals: [facility],REFERRING (PCP) Patient Instructions: Alcohol Intoxication, [id number], Alcohol Use Disorder Ezequiel Villagomez Mar 17, 2019 15:16
--- NOTE | 2019-03-17 15:33 | NUR ---
HAND-OFF: REPORT GIVEN TO LAWRENCE RAMON.
[2019-03-17 15:59] VITALS: BP 132/82
--- NOTE | 2019-03-17 15:59 | NUR ---
AMA: Patient refused ERMD recommendation and chose to call an uber to leave premises. SEE AMA FORM.
== END 2019-03-17 15:59 | disposition home or self-care (01) ==
LOC: EDBD 12:00 → EMR 12:20
DX: F10.20 Alcohol dependence, uncomplicated (principal); Z85.47 Personal history of malignant neoplasm of testis; I10 Essential (primary) hypertension; K70.30 Alcoholic cirrhosis of liver without ascites
CPT/HCPCS: 36415; 71045; 80053; 80307; 80329; 81001; 82248; 82550; 83690; 85007; 85025; 85610; 85730; 86850; 86900; 86901; 96361; 96374; 96375; J2765; S0028; Z7502; 99284

== ENCOUNTER 2019-03-23 02:02 | Inpatient (IN) | payer OTHER ==
[~2019-03-23] VITALS: Ht 175.3 cm; Wt 72.6 kg
[2019-03-23] VITALS (7 sets, daily range): BP systolic 122–153; BP diastolic 67–93
[~2019-03-23 02:02] MED LIST changes: +GABAPENTIN300 MG ORAL; +LIBRIUM10 MG ORAL; +PROTONIX20 MG ORAL; +TRAMADOL HCL50 MG ORAL
--- NOTE | 2019-03-23 02:30 | NUR ---
ED Nurse Note: PT ARRIVED TO ED WITH RA 829 D/T ETOH FROM HOME. PT STATES HE HAD WHISKEY. PT IS NAUSEATED AND ACTIVELY VOMITING.
--- NOTE | 2019-03-23 02:43 | Emergency Room Report ---
History of Present Illness General Chief Complaint: Alcohol Intoxication Source: Patient Present Illness HPI Disclaimer: Please note that this report is being documented using DRAGON technology. This can lead to erroneous entry secondary to incorrect interpretation by the dictating instrument. HPI: 38-year-old male with a history of chronic alcohol abuse, esophageal varices status post EGD presents for evaluation of vomiting. Patient states he has been on a 20-day alcohol binge drinking daily with his last drink being a few hours ago. Notes persistent vomiting and states he has not had anything to eat for the past few days. He noticed coffee-ground emesis earlier today and presented for evaluation. Denies any lower bleeding, denies asif hemoptysis or hematemesis. Complaining of significant epigastric pain particularly when retching. PMH: Esophageal varices, alcohol abuse PSH: EGD Allergies: Denies Social Hx: Alcohol abuse Allergies: Coded Allergies: No Known Allergies (Unverified , 02/28/15) Nursing Documentation-PMH Past Medical History: No History, Except For Hx Cardiac Problems: No - Testicular cancer Hx Hypertension: Yes Hx Cancer: Yes - TESTICULAR STAGE 2 Hx Gastrointestinal Problems: Yes - GI VARICES, TESTICULAR ULCER, GI BLEED Review of Systems All Other Systems: negative except mentioned in HPI Physical Exam Vital Signs Date Time Temp Pulse Resp B/P (MAP) Pulse Ox O2 Delivery O2 Flow Rate FiO2 03/23/19 02:00 98.8 93 19 127/87 (100) 100 Room Air General: Awake and alert, appears uncomfortable, intoxicated HEENT: NC/AT. EOMI. Cardiovascular: RRR. S1 and S2 normal. No murmur appreciated Resp: Normal work of breathing. No cough, wheezing or crackles appreciated Abdomen: Abdomen is soft, nondistended. Very tender to palpation in the epigastrium and upper quadrants bilaterally. Skin: Intact. No abrasions, laceration or rash over the exposed skin MSK: Normal tone and bulk. Moving all extremities. No obvious deformity. Neuro: Awake and alert. Mentating appropriately. Procedures Critical Care Time Critical Care Time Total critical care time: Approximately 31 minutes Due to a high probability of clinically significant, life threatening deterioration, the patient required the highest level of preparedness to intervene emergently and I personally spent this critical care time directly and personally managing the patient. This critical care time included obtaining a history, examining the patient, pulse oximetry, ordering and reviewing studies , ordering treatments, evaluating response to treatment and updating management plan as needed, frequent reassessment and discussion with other providers as well as arranging for ultimate disposition. This critical to care time was performed to assess and manage the high probability of life-threatening deterioration that could result in multiorgan failure. This critical care time is separate from the separately billable procedures and treating other patients. Medical Decision Making Diagnostic Impression: Primary Impression: Intractable abdominal pain Additional Impressions: Alcoholic gastritis Hypokalemia Alcohol abuse Intractable vomiting ER Course Is a 38-year-old male with history of chronic alcohol abuse and prior esophageal varices presenting for evaluation of persistent vomiting in the setting of alcohol use. Patient reports coffee-ground emesis over the past few days. He arrives hemodynamically stable but appears clinically dehydrated. Will start IV hydration, treat with antiemetics, obtain labs including type and screen. Not currently vomiting. May require admission depending on labs and reevaluation Laboratory Tests Test 03/23/19 03:09 White Blood Count 3.6 K/UL (4.8-10.8) L Red Blood Count 4.09 M/UL (4.70-6.10) L Hemoglobin 13.1 G/DL (14.2-18.0) L Hematocrit 36.5 % (42.0-52.0) L Mean Corpuscular Volume 89 FL (80-99) Mean Corpuscular Hemoglobin 31.9 PG (27.0-31.0) H Mean Corpuscular Hemoglobin Concent 35.8 G/DL (32.0-36.0) Red Cell Distribution Width 11.2 % (11.6-14.8) L Platelet Count 43 K/UL (150-450) L Mean Platelet Volume 7.5 FL (6.5-10.1) Neutrophils (%) (Auto) % (45.0-75.0) Lymphocytes (%) (Auto) % (20.0-45.0) Monocytes (%) (Auto) % (1.0-10.0) Eosinophils (%) (Auto) % (0.0-3.0) Basophils (%) (Auto) % (0.0-2.0) Neutrophils % (Manual) Pending Lymphocytes % (Manual) Pending Platelet Estimate Pending Platelet Morphology Pending Sodium Level 142 MMOL/L (136-145) Potassium Level 2.5 MMOL/L (3.5-5.1) *L Chloride Level 100 MMOL/L (98-107) Carbon Dioxide Level 30 MMOL/L (21-32) Anion Gap 11 mmol/L (5-15) Blood Urea Nitrogen 7 mg/dL (7-18) Creatinine 0.7 MG/DL (0.55-1.30) Estimate Glomerular Filtration Rate > 60 mL/min (>60) Glucose Level 118 MG/DL (74-106) H Calcium Level 7.7 MG/DL (8.5-10.1) L Phosphorus Level 1.4 MG/DL (2.5-4.9) L Magnesium Level 1.8 MG/DL (1.8-2.4) Total Bilirubin 2.5 MG/DL (0.2-1.0) H Direct Bilirubin 0.6 MG/DL (0.0-0.3) H Aspartate Amino Transferase (AST) 532 U/L (15-37) H Alanine Aminotransferase (ALT) 155 U/L (12-78) H Alkaline Phosphatase 101 U/L (46-116) Total Protein 6.5 G/DL (6.4-8.2) Albumin 3.4 G/DL (3.4-5.0) Globulin 3.1 g/dL Albumin/Globulin Ratio 1.1 (1.0-2.7) Lipase 348 U/L (73-393) Salicylates Level < 2.0 ug/mL (2.8-20) L Acetaminophen Level < 2 MCG/ML (10-30) L Serum Alcohol 204 mg/dL EKG Diagnostic Results EKG Time: 05:07 Rate: normal Rhythm: NSR ST Segments: no acute changes Other Impression Sinus rhythm, normal axis, prolonged QTC at 4 9 5 ms, no ST segment changes. There is isolated T wave inversion in V2 Rhythm Strip Diag. Results Rhythm Strip Time: 05:07 EP Interpretation: yes Rate: 80s Rhythm: NSR, no PVC's, no ectopy Reevaluation Time: 05:35 Last Vital Signs Date Time Temp Pulse Resp B/P (MAP) Pulse Ox O2 Delivery O2 Flow Rate FiO2 03/23/19 02:00 98.8 93 19 127/87 (100) 100 Room Air Reevaluation Impression Patient found to be hypokalemic, Hypocalcemic, hypophosphatemic with elevated liver enzymes particularly AST over ALT. This is consistent with the patient's alcohol abuse. Hemoglobin does not show an acute drop and is stable at 13.1. Patients alcohol level of 204. Repleting with IV and oral potassium. EKG does not show acute changes or significant T wave flattening. Abdominal pain and vomiting persist despite repeated rounds of medication. Continues to receive IV fluids. Patient will be admitted to telemetry. Per his insurance policy he will be transferred to a nearby facility in his network. He is stable and appropriate for transfer. Disposition: ADMITTED INPATIENT Condition: Serious Romulo Wilson MD Mar 23, 2019 02:43
[2019-03-23] MEDS ORDERED: Metoclopramide 10mg/2ml Inj IVP ONE (02:45)
[2019-03-23] MEDS ORDERED: Thiamine 100mg tab ORAL ONE (02:45)
[2019-03-23] MEDS ORDERED: DiphenhydrAMINE 50mg/ml Inj IVP ONE (02:45)
[2019-03-23] MEDS ORDERED: cefTRIAXone 1 GM in NS 55 ML IVPB ONE (03:30)
[2019-03-23] MEDS ORDERED: Morphine Sulfate 2mg/ml Inj(IV/IM USE ONLY) IVP ONE (03:30)
--- NOTE | 2019-03-23 03:30 | NUR ---
ED Nurse Note: Patient expresses pain, ERMD informed, will continue to monitor.
[2019-03-23 03:33] LABS: HEMATOCRIT 36.5 % (42.0-52.0); HEMOGLOBIN 13.1 G/DL (14.2-18.0); MEAN CORPUSCULAR VOLUME 89 FL (80-99); PLATELET COUNT 43 K/UL (150-450); RED BLOOD COUNT 4.09 M/UL (4.70-6.10); RED CELL DISTRIBUTION WIDTH 11.2 % (11.6-14.8); WHITE BLOOD COUNT 3.6 K/UL (4.8-10.8)
[2019-03-23 03:45] LABS: PHOSPHORUS 1.4 MG/DL (2.5-4.9)
--- NOTE | 2019-03-23 03:45 | NUR ---
ED Nurse Note: Patient tolerated medication well, IV N/S running at this time, will continue to monitor.
[2019-03-23 03:57] LABS: ALANINE AMINOTRANSFERASE 155 U/L (12-78); ALBUMIN 3.4 G/DL (3.4-5.0); ALBUMIN/GLOBULIN RATIO 1.1 (1.0-2.7); ALKALINE PHOSPHATASE 101 U/L (46-116); ANION GAP 11 mmol/L (5-15); ASPARTATE AMINO TRANSFERASE 532 U/L (15-37); BILIRUBIN,TOTAL 2.5 MG/DL (0.2-1.0); BLOOD UREA NITROGEN 7 mg/dL (7-18); CALCIUM 7.7 MG/DL (8.5-10.1); CARBON DIOXIDE 30 MMOL/L (21-32); CHLORIDE 100 MMOL/L (98-107); CREATININE 0.7 MG/DL (0.55-1.30); SODIUM 142 MMOL/L (136-145)
[2019-03-23 04:01] LABS: POTASSIUM 2.5 MMOL/L (3.5-5.1)
--- NOTE | 2019-03-23 04:30 | NUR ---
ED Nurse Note: Patient is resting comfortably with no s/s of acute distress. will continue to monitor.
[2019-03-23 04:37] LABS: BILIRUBIN,DIRECT 0.6 MG/DL (0.0-0.3)
[2019-03-23] MEDS ORDERED: Morphine Sulfate 4mg/ml Inj (IV USE ONLY) IVP ONE (05:30)
--- NOTE | 2019-03-23 06:49 | NUR ---
ED Nurse Note: Called floor to give report, bed has yet to be assigned to a nurse.
--- NOTE | 2019-03-23 06:58 | NUR ---
ED Nurse Note: CN called back to receive report, report rendered to Kanwal RN. Incoming ER nurse aware.
--- NOTE | 2019-03-23 07:12 | NUR ---
NURSE NOTES: Report received from JIE Nixon. New admission not on the floor at this time.
--- NOTE | 2019-03-23 07:49 | NUR ---
NURSE NOTES: Pt. came in from ER via gurney. In RA. AOx4. Skin intact. IV intact, flushed, SL. Belongings checked, signed and filed. Pt. changed into floor gown. hydrotel operator applied. VS taken and charted. Oriented to room. Bed left on low position, side rails upxw, brakes engaged. Call light within easy reach.
[2019-03-23] MEDS ORDERED: traMADol 50mg tab ORAL PRN (08:30)
[2019-03-23] MEDS ORDERED: LORazepam 1mg tab ORAL PRN (08:30)
[2019-03-23] MEDS ORDERED: D5NS 1,000 ML IV SCH (08:30)
[2019-03-23] MEDS: Thiamine HCl 100 MG in D5W 55 ML IVPB SCH (10:16)
[2019-03-23] MEDS ORDERED: Lansoprazole 15mg cap ORAL SCH (15:00)
[2019-03-23 15:38] LABS: ALANINE AMINOTRANSFERASE 140 U/L (12-78); ALKALINE PHOSPHATASE 109 U/L (46-116); ANION GAP 5 mmol/L (5-15); ASPARTATE AMINO TRANSFERASE 448 U/L (15-37); BILIRUBIN,TOTAL 1.2 MG/DL (0.2-1.0); BLOOD UREA NITROGEN 9 mg/dL (7-18); CALCIUM 7.9 MG/DL (8.5-10.1); CARBON DIOXIDE 32 MMOL/L (21-32); CHLORIDE 99 MMOL/L (98-107); SODIUM 136 MMOL/L (136-145)
[2019-03-23 15:41] LABS: POTASSIUM 2.6 MMOL/L (3.5-5.1)
[2019-03-23 15:42] LABS: BILIRUBIN,DIRECT 0.4 MG/DL (0.0-0.3)
[2019-03-23] MEDS: Phospha 250 Neutral tab ORAL SCH (17:56)
[2019-03-23] MEDS: LORazepam Inj 2mg/ml 1ml IV PRN (17:57)
--- NOTE | 2019-03-23 19:30 | History and Physical Report ---
DATE OF ADMISSION: 03/23/2019 REASON FOR ADMISSION: Multiple electrolyte abnormalities. HISTORY OF PRESENT ILLNESS: This 38-year-old male has a history of alcoholism and esophageal varices. He has had vomiting, abdominal pain and nausea for several days. He has not been able to the eat. He has been on a 20 day alcohol binge after stopping his drinking for some time. He has not had any bright red blood noted in the emesis. PAST MEDICAL HISTORY: As noted above. History of testicular cancer stage II ALLERGIES: None. MEDICATIONS: None. REVIEW OF SYSTEMS: A 10-point review of systems is otherwise unremarkable. PHYSICAL EXAMINATION: VITAL SIGNS: Blood pressure 127/87, pulse 93, respiratory rate 19. GENERAL: Tremulous. HEENT: Conjunctiva pink. Sclerae are anicteric. Oropharynx clear. Mucous membranes dry. NECK: Supple. LUNGS: Clear. CARDIAC: Regular. Normal S1, S2 with no murmur. ABDOMEN: Soft and nontender. EXTREMITIES: No edema. NEUROLOGIC: Nonfocal. LABORATORY AND DIAGNOSTIC DATA: White count 3.6, hemoglobin 13.1, platelets 43,000. Sodium 142, potassium 2.5, bicarbonate 30, BUN 7, creatinine 0.7. Phosphorus 1.4 and magnesium 1.8. Liver function studies are elevated to 532 and 155 respectively with total bilirubin of 2.5. Alkaline phosphatase of 101. Albumin 3.4. IMPRESSION: 1. Alcohol intoxication. 2. Alcoholism. 3. Alcohol binge drinking. 4. Severe hypokalemia. 5. Hypophosphatemia. 6. Transaminitis. 7. History of esophageal varices. 8. History of testicular cancer. PLAN: 1. Cardiac monitoring. 2. IV fluid hydration. 3. Replace electrolytes. 4. Recheck magnesium. 5. Withdrawal precautions. 6. Social service consultation. 7. Antiemetics. Yossi Cha M.D. DR: Nando JOB#: [id number] CC:
--- NOTE | 2019-03-23 19:49 | NUR ---
HAND-OFF: Report given to LAWRENCE Aguilar. Pt. in stable condition. Plan of care endorsed.
--- NOTE | 2019-03-23 19:50 | NUR ---
NURSE NOTES: Received report from LAWRENCE Alvarenga. Patient is awake, lying in semi murray's; resting comfortably. A/Ox4. Denies pain at this time. No signs of acute cardiorespiratory distress noted. Checked IV site and flushed. No erythema, bleeding or infiltration noted. Able to make needs known. Ambulates with assistance. Bed at lowest position, brakes on, siderails x2. Call light within reach. Will continue to monitor.
--- NOTE | 2019-03-23 21:30 | NUR ---
NURSE NOTES: Patient is anxious, agitated and complained of RUQ, nonradiating with a pain scale of 8/10, tender upon light palpation. Patient is requesting for morphine to be given as pain medication and wants his ativan to increase his dosage and frequency. Patient also stated that, "I can't sleep. Can you please give me some sleeping medication?" Offered tramadol PRN medication. Comfort care provided. Paged Dr. Cha, awaiting for callback.
[2019-03-24] VITALS: BP 128/65
[2019-03-24] MEDS: LORazepam Inj 2mg/ml 1ml IV PRN ×3 (00:04→10:51)
[2019-03-24] MEDS ORDERED: Sucralfate 1gm tab ORAL ONE (00:15)
--- NOTE | 2019-03-24 02:40 | NUR ---
NURSE NOTES: Resting throughout the night. No significant change of condition noted. Will continue to monitor.
[2019-03-24] MEDS: Sucralfate 1gm tab ORAL SCH ×2 (06:50→11:30)
--- NOTE | 2019-03-24 07:20 | NUR ---
HAND-OFF: Report given to LAWRENCE Umanzor. Plan of care endorsed.
--- NOTE | 2019-03-24 07:30 | NUR ---
NURSE NOTES: Received report from LAWRENCE Aguilar. Patient is awake, lying in semi murray's; resting comfortably. A/Ox4. No signs of acute cardiorespiratory distress noted. Checked IV site and flushed. No erythema, bleeding or infiltration noted. Able to make needs known. Ambulates with assistance. Bed at lowest position, brakes on, and siderailsx2. Call light within reach. Will continue to monitor.
[2019-03-24 07:50] LABS: HEMATOCRIT 32.6 % (42.0-52.0); HEMOGLOBIN 11.6 G/DL (14.2-18.0); MEAN CORPUSCULAR VOLUME 90 FL (80-99); PLATELET COUNT 41 K/UL (150-450); RED BLOOD COUNT 3.61 M/UL (4.70-6.10); RED CELL DISTRIBUTION WIDTH 11.1 % (11.6-14.8); WHITE BLOOD COUNT 3.2 K/UL (4.8-10.8)
[2019-03-24 08:00] VITALS: BP 151/86
[2019-03-24 09:00] LABS: ALANINE AMINOTRANSFERASE 141 U/L (12-78); ALBUMIN 2.9 G/DL (3.4-5.0); ALKALINE PHOSPHATASE 115 U/L (46-116); ANION GAP 6 mmol/L (5-15); ASPARTATE AMINO TRANSFERASE 434 U/L (15-37); BILIRUBIN,TOTAL 1.4 MG/DL (0.2-1.0); BLOOD UREA NITROGEN 3 mg/dL (7-18); CALCIUM 7.4 MG/DL (8.5-10.1); CARBON DIOXIDE 31 MMOL/L (21-32); CHLORIDE 101 MMOL/L (98-107); CREATININE 0.8 MG/DL (0.55-1.30); SODIUM 138 MMOL/L (136-145)
[2019-03-24 09:04] LABS: POTASSIUM 2.3 MMOL/L (3.5-5.1)
[2019-03-24 09:19] LABS: BILIRUBIN,DIRECT 0.4 MG/DL (0.0-0.3)
--- NOTE | 2019-03-24 09:32 | NUR ---
NURSE NOTES: 0904: received critical lab value for potassium 2.3. 0932: spoke with Dr. Cha about potassium value. received orders.
--- NOTE | 2019-03-24 10:00 | NUR ---
Social Service Note SW attempted to meet with patient to address ETOH dependency and resources. Patient ask SW to return a later time as he wanted to sleep and didn't want to address long history for ETOH abuse. Patient is receiving case management oversight by [employer] (homeless program) FSP/substance abuse provider. SW left a message for patient's case assembler Tylor Marinofield [phone], no return call at this time. Patient is housed at this time and doesn't require the homeless check list to be completed. Will monitor and follow up.
[2019-03-24] MEDS: Phospha 250 Neutral tab ORAL SCH (10:21)
[2019-03-24] MEDS: Thiamine HCl 100 MG in D5W 55 ML IVPB SCH (10:22)
--- NOTE | 2019-03-24 10:37 | NUR ---
*-* NO INSURANCE INFORMATION INT HE [employer] SEND CLINICALS OR REVIEWS *-*
[2019-03-24] MEDS ORDERED: NS 275ml ONE (11:28)
--- NOTE | 2019-03-24 11:29 | NUR ---
NURSING NOTE: Patient states he would rather go home to take a shower after changing to his clothes. Explain to patient to wait for the doctor and was in process for response to the patient regarding alcohol withdrawal treatment. Patient still refused and states he will go home. Patient signed the AMA form. Charge nurse Debbie spoke to the patient about AMA. Patient states he still wants to go home. IV heplock, ID band, and cardiac specialist were removed. Patient left at 11:29am with his personal belongings. Kenisha, nursing hatchery supervisor, Debbie, charge nurse, and Dr. Cha were made aware.
--- NOTE | 2019-03-25 03:45 | Progress Note ---
DATE: 03/24/2019 INTERNAL MEDICINE PROGRESS NOTE SUBJECTIVE: The patient continues to request more higher doses of lorazepam as well as pain medication. He does not appear to be uncomfortable. His nausea and vomiting continues, but has improved significantly. OBJECTIVE: VITAL SIGNS: Blood pressure 128/65, pulse 82, respirations 19, and afebrile last evening. This morning, 151/86, 81, 19. LUNGS: Clear. CARDIAC: Regular. Normal S1, S2 with no murmur. ABDOMEN: Soft with mild diffuse tenderness. No guarding or rebound. LABORATORY DATA: White count 3.2, hemoglobin 11.6. Potassium 3.3, magnesium 1.9. Liver function studies remain elevated with BUN 3, creatinine 0.8. IMPRESSION: 1. Alcohol withdrawal. 2. Alcohol intoxication. 3. Gastritis associated pain. 4. Hypomagnesemia. 5. Hypophosphatemia. 6. Hypokalemia. 7. Transaminitis. 8. Alcoholic liver disease. 9. Moderate protein-calorie malnutrition. PLAN: 1. Replace potassium. 2. IV magnesium already given and additional doses will be considered. 3. Phosphorus replacement. 4. Limit set on benzodiazepine. 5. No morphine therapy. 6. GI consult. 7. Continue proton pump inhibitor and Carafate. 8. Social service consult pending. Yossi Cha M.D. DR: GABRIELLA JOB#: [id number] CC:
--- NOTE | 2019-03-26 10:16 | Discharge Summary ---
Discharge Summary Discharge Summary _ DATE OF ADMISSION: 03/23/2019 DATE OF DISCHARGE: 03/24/2019 Patient left AGAINST MEDICAL ADVICE REASON FOR ADMISSION: 88 years old male with past medical medical history of testicular cancer stage II, in remission, liver disease, due to chronic alcohol abuse, esophageal varices, status post EGD, presented due to vomiting. Patient apparently was on the 20 days of alcohol binge drinking daily with his last drink being only few hours prior to presentation to ED. Patient was unable to eat anything for few days. Patient noted coffee-ground emesis earlier that morning and presented for evaluation. He denied any lower GI bleeding. He denied asif hemoptysis or hematemesis. He reported significant epigastric pain . Upon evaluation vital signs were stable. Laboratory work-up revealed WBC 3.6, hemoglobin 13.1 , hematocrit 36.5. Platelet count 43. Potassium 2.5 , sodium 142. BUN 7, creatinine 0.7. Glucose 118. Total bilirubin 2.5, direct bilirubin 0.6. AST 532, ALT 155. Serum alcohol level 204. Serum salicylates and Tylenol negative. EKG revealed sinus rhythm, no acute ischemic changes. Patient started on the IV fluids, received antiemetics. Potassium replaced . Patient subsequently admitted for further management HOSPITAL COURSE: Patient admitted to telemetry floor. Patient started on IV fluids with vitamins: thiamine and folic acid . Antiemetic provided as needed . Patient started on GI prophylaxis with Pepcid. Pain management was addressed as needed. Seizure precautions maintained. CIWA protocol initiated . Anxiolytic were on board as needed for withdrawal symptoms. Renal parameters and electrolytes were closely monitored. Potassium , phosphorus and magnesium were all replaced. Hemoglobin from 13.1 down to 11.6, hematocrit from 36.5 down to 32.6. Platelet count remains low 41. LFT were trending : AST from 532 down to 434 and ALT from 155 down to 141. Potassium persistently low, replaced on a daily basis along with the phosphorus and magnesium. Patient was [id number] on alcohol cessation. home worker attempted to meet with patient to address ETOH dependency and resources. Patient did not want to address long history for ETOH abuse. Patient decided to leave AGAINST MEDICAL ADVICE. The risks and consequences of signing AGAINST MEDICAL ADVICE were discussed with patient in detail. Patient verbalized understanding, nevertheless signed AMA form and left. FINAL DIAGNOSES: Alcohol intoxication ETOH abuse with binge drinking Alcoholic gastritis with associated abdominal pain Alcoholic liver disease Transaminitis Electrolyte imbalance: severe hypokalemia, hypomagnesemia, hypophosphatemia Thrombocytopenia History of testicular cancer History of esophageal varices Moderate protein calorie malnutrition I have been assigned to dictate discharge summary for this account. I was not involved in the patient's management. Marielle Patino NP Mar 26, 2019 10:16
--- NOTE | 2019-03-28 10:43 | NUR ---
*-* INSURANCE *--* ALL CLINICALS AND REVIEWS HAVE BEEN FAXED TO PER ADMITTING: CM: Daina #[phone]
== END 2019-03-24 11:29 | disposition left against medical advice (07) | DRG 422 ==
LOC: EDBD 02:02 → EMR 02:50 → 2E 06:26 → EDBEDREQ 06:47
DX: E87.6 Hypokalemia (principal); E83.42 Hypomagnesemia; K29.70 Gastritis, unspecified, without bleeding; R11.10 Vomiting, unspecified; E86.0 Dehydration; E83.51 Hypocalcemia; K70.9 Alcoholic liver disease, unspecified; E83.39 Other disorders of phosphorus metabolism; K29.20 Alcoholic gastritis without bleeding; Z85.47 Personal history of malignant neoplasm of testis; F10.239 Alcohol dependence with withdrawal, unspecified; R74.0 Nonspecific elevation of levels of transaminase and lactic acid dehydrogenase [LDH]; E44.0 Moderate protein-calorie malnutrition; D69.6 Thrombocytopenia, unspecified
CPT/HCPCS: 36415; 80053; 80329; 82248; 82607; 82746; 83690; 83735; 84100; 84443; 85007; 85025; 86850; 86900; 86901; 96361; 96365; 96367; 96375; 96376; 99291; C9399; J2405; J2765; J8499

== ENCOUNTER 2019-04-09 11:32 | Emergency (ER) | payer OTHER ==
[~2019-04-09] VITALS: Ht 182.9 cm; Wt 74.8 kg
[2019-04-09 11:45] VITALS: BP 138/92
--- NOTE | 2019-04-09 11:45 | NUR ---
ED Nurse Note: Tremaynealla brought in to Ed by ambulance c/o vomiting, patient states that he has been drinking non stop for 30 days now, admits to bryanna cheema, complains of 8/10 abdominal pain, patient is dry heaving. patient is alert and oriented x4. IV started on left upper arm 22 gauge, patient placed on a personnel monitor will wait for further orders
[2019-04-09] MEDS ORDERED: Mylanta II UD 30ml ORAL ONE (12:30)
[2019-04-09] MEDS ORDERED: Lidocaine 2% Visc 15ml soln ORAL ONE (12:30)
[2019-04-09] MEDS ORDERED: Dicyclomine HCl 10mg/5ml oral soln ORAL ONE (12:30)
--- NOTE | 2019-04-09 12:38 | Emergency Room Report ---
History of Present Illness General Chief Complaint: Vomiting Source: Patient Present Illness HPI 39-year-old male comes here with complaints of severe 10 out of 10 epigastric sharp and burning pain rating to his back, reports that it was associated with drinking hard liquor every day for the past month, last drink last night, he reports he is not syncopized, he is not tremulous, but has been vomiting bile. Its coffee-ground or bloody vomitus. He also denies any dark stools, and has not tried any medications for his symptoms. Allergies: Coded Allergies: No Known Allergies (Unverified , 02/28/15) Patient History Past Medical History: see triage record Reviewed Nursing Documentation: PMH: Agreed; PSxH: Agreed Nursing Documentation-PMH Hx Cardiac Problems: No Hx Hypertension: Yes Hx Cancer: Yes - TESTICULAR STAGE 2 Hx Gastrointestinal Problems: Yes - GI VARICES, GI BLEED, LIVR CIRRHOSIS Hx Neurological Problems: No Review of Systems All Other Systems: negative except mentioned in HPI Physical Exam Vital Signs Date Time Temp Pulse Resp B/P (MAP) Pulse Ox O2 Delivery O2 Flow Rate FiO2 04/09/19 11:29 98.4 82 19 138/92 (107) 98 Room Air Sp02 EP Interpretation: reviewed, normal General Appearance: no apparent distress, alert, non-toxic Head: normocephalic Eyes: bilateral eye normal inspection, bilateral eye PERRL, bilateral eye EOMI ENT: normal ENT inspection, hearing grossly normal, normal pharynx, no angioedema, normal voice, moist mucus membranes Neck: normal inspection, full range of motion, supple, supple/symm/no masses Respiratory: chest non-tender, lungs clear, normal breath sounds, chest symmetrical, palpation of chest normal Cardiovascular #1: normal peripheral pulses, regular rate, rhythm Cardiovascular #2: 2+ radial (R), 2+ radial (L) Gastrointestinal: normal inspection, non tender, soft, no mass, no guarding, no rebound Rectal: deferred Genitourinary: normal inspection, no CVA tenderness Musculoskeletal: back normal, gait/station normal, normal range of motion, non- tender, no calf tenderness Neurologic: alert, responsive, 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 He continues to vomit here, despite not putting his finger down his throat on repeat evaluation, his labs do reveal elevated LFTs but no change from previous labs, and he will be given IV fluids, will be given another milligram of Ativan , Haldol, and will admit for persistent vomiting. Will for MedSurg. Rhythm Strip Diag. Results Rhythm Strip Time: 13:35 EP Interpretation: yes Rate: 85 Rhythm: NSR, no PVC's, no ectopy Last Vital Signs Date Time Temp Pulse Resp B/P (MAP) Pulse Ox O2 Delivery O2 Flow Rate FiO2 04/09/19 11:29 98.4 82 19 138/92 (107) 98 Room Air Disposition: XFER SHT-TRM HOSP Condition: Stable Signed Out To: D/w Dr. Rodriguez, agreed to accept in tx for mild withdrawal/ vomiting CAROLINE JANSEN M.D Apr 09, 2019 12:38
[2019-04-09] MEDS ORDERED: LORazepam Inj 2mg/ml 1ml IV ONE (12:45)
[2019-04-09 12:55] LABS: BASOPHILS % (AUTO) 1.5 % (0.0-2.0); EOSINOPHILS % (AUTO) 0.1 % (0.0-3.0); HEMATOCRIT 40.1 % (42.0-52.0); HEMOGLOBIN 13.6 G/DL (14.2-18.0); LYMPHOCYTES % (AUTO) 25.3 % (20.0-45.0); MEAN CORPUSCULAR VOLUME 98 FL (80-99); MONOCYTES % (AUTO) 5.4 % (1.0-10.0); NEUTROPHILS % (AUTO) 67.7 % (45.0-75.0); PLATELET COUNT 189 K/UL (150-450); RED BLOOD COUNT 4.09 M/UL (4.70-6.10); RED CELL DISTRIBUTION WIDTH 17.4 % (11.6-14.8); WHITE BLOOD COUNT 4.3 K/UL (4.8-10.8)
[2019-04-09 13:11] LABS: ANION GAP 16 mmol/L (5-15); BLOOD UREA NITROGEN 15 mg/dL (7-18); CARBON DIOXIDE 26 MMOL/L (21-32); CHLORIDE 105 MMOL/L (98-107); CREATININE 0.7 MG/DL (0.55-1.30); POTASSIUM 4.7 MMOL/L (3.5-5.1); SODIUM 147 MMOL/L (136-145)
[2019-04-09 13:22] LABS: ALANINE AMINOTRANSFERASE 337 U/L (12-78); ALBUMIN 4.4 G/DL (3.4-5.0); ALKALINE PHOSPHATASE 236 U/L (46-116); ASPARTATE AMINO TRANSFERASE 349 U/L (15-37); BILIRUBIN,TOTAL 1.3 MG/DL (0.2-1.0)
[2019-04-09 13:23] LABS: BILIRUBIN,DIRECT 0.4 MG/DL (0.0-0.3)
[2019-04-09 13:25] VITALS: BP 125/78
[2019-04-09] MEDS ORDERED: Haloperidol 5mg/ml Inj IM ONE (13:30)
[2019-04-09 15:41] VITALS: BP 139/78
[2019-04-09 15:54] VITALS: BP 139/78
[2019-04-09 16:01] LABS: APPEARANCE,URINE CLEAR; BILIRUBIN, URINE NEGATIVE (NEGATIVE); GLUCOSE, URINE (UA) NEGATIVE (NEGATIVE); KETONES,URINE 3+ (NEGATIVE); LEUKOCYTE ESTERASE ,URINE NEGATIVE (NEGATIVE); NITRITE,URINE NEGATIVE (NEGATIVE); PH,URINE 6.5 (4.5-8.0); PROTEIN,URINE 2+ (NEGATIVE); UROBILINOGEN,URINE NORMAL MG/DL (0.0-1.0)
[2019-04-09 16:10] LABS: COLOR,URINE YELLOW
--- NOTE | 2019-04-09 20:18 | Diagnostic Imaging Report ---
ABDOMINAL RADIOGRAPH Indication: Abdominal pain Technique: AP and upright views of the abdomen. Comparison: None. Findings: Bowel gas pattern is nonobstructive. No evidence of free air. Lung bases are clear. IMPRESSION: No radiographic evidence of small bowel obstruction.
== END 2019-04-09 15:45 | disposition short-term general hospital (02) ==
LOC: EDBD 11:32 → EMR 12:30
DX: F10.239 Alcohol dependence with withdrawal, unspecified (principal); K70.30 Alcoholic cirrhosis of liver without ascites; R11.2 Nausea with vomiting, unspecified; I10 Essential (primary) hypertension; Z85.47 Personal history of malignant neoplasm of testis
CPT/HCPCS: 36415; 74019; 80053; 81003; 82248; 83690; 85025; 96361; 96374; 96375; J1630; J2405; Z7502; 99284; J7030

== ENCOUNTER 2019-04-12 18:32 | Emergency (ER) | payer OTHER ==
[~2019-04-12] VITALS: Ht 170.2 cm; Wt 54.4 kg
--- NOTE | 2019-04-12 18:43 | NUR ---
ED Nurse Note: pt brougth by from [facility] due to abdominal pain aw nausea and vomiting. pt has alcohol abuse. per pt, drank vodka and whisky yesterday night. pt also c/o diarrheas. AAO x4. respirations even and non-labored noted. skin warm to touch. multiple bruised and needle winn noted. 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 will wait for the further order.
[2019-04-12] MEDS ORDERED: Thiamine 100mg tab ORAL ONE (18:45)
[2019-04-12] MEDS ORDERED: Lidocaine 2% Visc 15ml soln ORAL ONE (18:45)
[2019-04-12] MEDS ORDERED: Morphine Sulfate 4mg/ml Inj (IV USE ONLY) IVP ONE ×2 (18:45→19:45)
[2019-04-12] MEDS ORDERED: chlordiazePOXIDE 25mg Cap ORAL ONE (18:45)
[2019-04-12] MEDS ORDERED: Metoclopramide 10mg/2ml Inj IVP ONE (18:45)
[2019-04-12] MEDS ORDERED: Omnipaque-300 100ml vial INJ PRN (18:45)
--- NOTE | 2019-04-12 18:49 | Emergency Room Report ---
History of Present Illness General Chief Complaint: Abdominal Pain Source: Patient, Medical Record Present Illness HPI 39-year-old male history of alcohol dependence, epigastric pain, pancreatitis presents with epigastric pain prior to arrival, sharp pain aggravated with drinking alleviated, patient endorses nausea vomiting, no blood, by not drinking , severity is moderate, constant patient reports that he had several bottles of alcohol, he states he is trying to quit and enter a zahra-based program. Denies any hallucinations, tremors. Patient presents for evaluation. Allergies: Coded Allergies: No Known Allergies (Unverified , 02/28/15) Patient History Past Medical History: see triage record Social History: Reports: alcohol use Reviewed Nursing Documentation: PMH: Agreed; PSxH: Agreed Nursing Documentation-PMH Past Medical History: No History, Except For Hx Cardiac Problems: No Hx Hypertension: Yes Hx Cancer: Yes - TESTICULAR STAGE 2 Hx Gastrointestinal Problems: Yes - GI VARICES, GI BLEED, LIVR CIRRHOSIS Hx Neurological Problems: No Review of Systems All Other Systems: negative except mentioned in HPI Physical Exam Vital Signs Date Time Temp Pulse Resp B/P (MAP) Pulse Ox O2 Delivery O2 Flow Rate FiO2 04/12/19 18:32 97.9 80 18 100/58 (72) 99 Room Air Sp02 EP Interpretation: reviewed, normal General Appearance: well appearing, no apparent distress, alert Head: normocephalic, atraumatic Eyes: bilateral eye PERRL, bilateral eye EOMI ENT: uvula midline, moist mucus membranes Neck: supple, thyroid normal, supple/symm/no masses Respiratory: lungs clear, no respiratory distress, no retraction, no accessory muscle use Cardiovascular #1: normal peripheral pulses, regular rate, rhythm, no edema, no gallop, no murmur Gastrointestinal: non tender, soft, no guarding, no rebound Musculoskeletal: normal inspection Neurologic: alert, oriented x3 Psychiatric: mood/affect normal Skin: no rash, warm/dry Medical Decision Making Diagnostic Impression: Primary Impression: Acute alcoholic intoxication Qualified Codes: F10.920 - Alcohol use, unspecified with intoxication, uncomplicated Additional Impressions: Abdominal pain Qualified Codes: R10.13 - Epigastric pain Pancreatitis, alcoholic, acute Qualified Codes: K85.20 - Alcohol induced acute pancreatitis without necrosis or infection ER Course 39-year-old male presents with epigastric pain concerning for possible pancreatitis versus alcoholic gastritis versus cholecystitis Patient states he drank today, patient is currently not withdrawing, abdomen remains soft nontender Patient's lipase is elevated, however he is tolerating p.o., tolerating liquids , counseled patient that he needs to quit drinking, Librium was given folic acid , thiamine, patient was also given rehydration therapy. Patient with mild alcoholic pancreatitis, patient is stable for discharge, CT abdomen is negative, Counseled patient on how to progress his diet Patient will follow-up and attempt not to drink alcohol. Laboratory Tests Test 04/12/19 18:50 White Blood Count 4.6 K/UL (4.8-10.8) L Red Blood Count 3.72 M/UL (4.70-6.10) L Hemoglobin 12.6 G/DL (14.2-18.0) L Hematocrit 36.6 % (42.0-52.0) L Mean Corpuscular Volume 98 FL (80-99) Mean Corpuscular Hemoglobin 34.0 PG (27.0-31.0) H Mean Corpuscular Hemoglobin Concent 34.6 G/DL (32.0-36.0) Red Cell Distribution Width 16.3 % (11.6-14.8) H Platelet Count 165 K/UL (150-450) Mean Platelet Volume 6.1 FL (6.5-10.1) L Neutrophils (%) (Auto) 56.0 % (45.0-75.0) Lymphocytes (%) (Auto) 29.6 % (20.0-45.0) Monocytes (%) (Auto) 11.4 % (1.0-10.0) H Eosinophils (%) (Auto) 1.2 % (0.0-3.0) Basophils (%) (Auto) 1.7 % (0.0-2.0) Sodium Level 140 MMOL/L (136-145) Potassium Level 3.9 MMOL/L (3.5-5.1) Chloride Level 106 MMOL/L (98-107) Carbon Dioxide Level 22 MMOL/L (21-32) Anion Gap 12 mmol/L (5-15) Blood Urea Nitrogen 13 mg/dL (7-18) Creatinine 1.1 MG/DL (0.55-1.30) Estimate Glomerular Filtration Rate > 60 mL/min (>60) Glucose Level 143 MG/DL (74-106) H Calcium Level 8.5 MG/DL (8.5-10.1) Total Bilirubin 0.8 MG/DL (0.2-1.0) Aspartate Amino Transferase (AST) 105 U/L (15-37) H Alanine Aminotransferase (ALT) 159 U/L (12-78) H Alkaline Phosphatase 187 U/L (46-116) H Total Protein 7.0 G/DL (6.4-8.2) Albumin 3.7 G/DL (3.4-5.0) Globulin 3.3 g/dL Albumin/Globulin Ratio 1.1 (1.0-2.7) Lipase 630 U/L (73-393) H Serum Alcohol 165 mg/dL EKG Diagnostic Results EKG Time: 18:51 EP Interpretation: NSR, rate 78, QTc 449, no acute ST elevations, normal axis Rhythm Strip Diag. Results Rhythm Strip Time: 19:01 EP Interpretation: yes Rate: 78 Rhythm: NSR, no PVC's, no ectopy CT/MRI/US Diagnostic Results CT/MRI/US Diagnostic Results : Impression Final Report EXAM: CT Abdomen and Pelvis With Intravenous Contrast CLINICAL HISTORY: PAIN TECHNIQUE: Axial computed tomography images of the abdomen and pelvis with intravenous contrast. CTDI is 10 mGy and DLP is 573.50 mGy-cm. One or more of the following dose reduction techniques were used: automated exposure control, adjustment of the mA and/or kV according to patient size, use of iterative reconstruction technique. COMPARISON: CT abdomen and pelvis dated 03/10/2019 FINDINGS: Lung bases: Unremarkable. No mass. No consolidation. ABDOMEN: Liver: Decreased attenuation liver which may be phase of IV contrast versus hepatic steatosis. Hypodense lesion within left hepatic lobe measuring up to 9 mm which is too small to characterize. Gallbladder and bile ducts: Unremarkable. Pancreas: Unremarkable. Spleen: Unremarkable. Adrenals: Unremarkable. Kidneys and ureters: Unremarkable. Stomach and bowel: Unremarkable. PELVIS: Appendix: Appendix is unremarkable. Bladder: Unremarkable. Reproductive: Unremarkable as visualized. ABDOMEN and PELVIS: Intraperitoneal space: Unremarkable. Bones/joints: No acute fracture. No dislocation. Soft tissues: Unremarkable. Vasculature: Unremarkable. No abdominal aortic aneurysm. Lymph nodes: Unremarkable. IMPRESSION: No acute findings. Radiologist: Jeremias Deleon MD Electronically Signed: 04/12/19 19:55 Study ready at 19:48 and initial results transmitted at 19:55 Last Vital Signs Date Time Temp Pulse Resp B/P (MAP) Pulse Ox O2 Delivery O2 Flow Rate FiO2 04/12/19 18:40 80 18 Room Air 04/12/19 18:40 99 04/12/19 18:32 97.9 100/58 (72) Disposition: HOME, SELF-CARE Condition: Stable Scripts Ondansetron (Zofran) 4 Mg Tablet 4 MG ORAL Q8H PRN for Nausea & Vomiting, #30 TAB 0 Refills Prov: Jeremiah Santamaria MD 04/12/19 Referrals: [facility] Jermaine Pisano [facility]. [facility] Patient Instructions: Acute Pancreatitis, [id number], Alcohol Intoxication, Jlmq-[id number], Alcohol Use Disorder Additional Instructions: The patient was provided with discharge instructions, notified to follow-up with a primary care doctor and or specialist in the next 24-48 hours, and to return to the ED if they have worsening of their symptoms. Please note that this report is being documented using [employer] technology. This can lead to erroneous entry secondary to incorrect interpretation by the dictating instrument. 04/12 PLEASE DRINK SOUP, GATORADE, MAINTAIN HYDRATION, LIQUID DIET 04/13 PLEASE DRINK SOUP, GATORADE, MAINTAIN HYDRATION, LIQUID DIET 04/14, PROGRESS DIET TO SOFT DIET 04/15 MAY HAVE REGULAR FOOD. Jeremiah Santamaria MD Apr 12, 2019 18:49
[2019-04-12 19:01] LABS: BASOPHILS % (AUTO) 1.7 % (0.0-2.0); EOSINOPHILS % (AUTO) 1.2 % (0.0-3.0); HEMATOCRIT 36.6 % (42.0-52.0); HEMOGLOBIN 12.6 G/DL (14.2-18.0); LYMPHOCYTES % (AUTO) 29.6 % (20.0-45.0); MEAN CORPUSCULAR VOLUME 98 FL (80-99); MONOCYTES % (AUTO) 11.4 % (1.0-10.0); PLATELET COUNT 165 K/UL (150-450); RED BLOOD COUNT 3.72 M/UL (4.70-6.10); RED CELL DISTRIBUTION WIDTH 16.3 % (11.6-14.8); WHITE BLOOD COUNT 4.6 K/UL (4.8-10.8)
--- NOTE | 2019-04-12 19:17 | NUR ---
HAND-OFF: Report given to LAWRENCE Talbert.
--- NOTE | 2019-04-12 19:56 | Diagnostic Imaging Report ---
EXAM: CT Abdomen and Pelvis With Intravenous Contrast CLINICAL HISTORY: PAIN TECHNIQUE: Axial computed tomography images of the abdomen and pelvis with intravenous contrast. CTDI is 10 mGy and DLP is 573.50 mGy-cm. One or more of the following dose reduction techniques were used: automated exposure control, adjustment of the mA and or kV according to patient size, use of iterative reconstruction technique. COMPARISON: CT abdomen and pelvis dated 03 10 2019 FINDINGS: Lung bases: Unremarkable. No mass. No consolidation. ABDOMEN: Liver: Decreased attenuation liver which may be phase of IV contrast versus hepatic steatosis. Hypodense lesion within left hepatic lobe measuring up to 9 mm which is too small to characterize. Gallbladder and bile ducts: Unremarkable. Pancreas: Unremarkable. Spleen: Unremarkable. Adrenals: Unremarkable. Kidneys and ureters: Unremarkable. Stomach and bowel: Unremarkable. PELVIS: Appendix: Appendix is unremarkable. Bladder: Unremarkable. Reproductive: Unremarkable as visualized. ABDOMEN and PELVIS: Intraperitoneal space: Unremarkable. Bones joints: No acute fracture. No dislocation. Soft tissues: Unremarkable. Vasculature: Unremarkable. No abdominal aortic aneurysm. Lymph nodes: Unremarkable. IMPRESSION: No acute findings.
[2019-04-12 20:03] LABS: ALANINE AMINOTRANSFERASE 159 U/L (12-78); ALBUMIN 3.7 G/DL (3.4-5.0); ALBUMIN/GLOBULIN RATIO 1.1 (1.0-2.7); ALKALINE PHOSPHATASE 187 U/L (46-116); ANION GAP 12 mmol/L (5-15); ASPARTATE AMINO TRANSFERASE 105 U/L (15-37); BILIRUBIN,TOTAL 0.8 MG/DL (0.2-1.0); BLOOD UREA NITROGEN 13 mg/dL (7-18); CALCIUM 8.5 MG/DL (8.5-10.1); CARBON DIOXIDE 22 MMOL/L (21-32); CHLORIDE 106 MMOL/L (98-107); CREATININE 1.1 MG/DL (0.55-1.30); POTASSIUM 3.9 MMOL/L (3.5-5.1); SODIUM 140 MMOL/L (136-145)
[2019-04-12 20:09] VITALS: BP 90/55
[2019-04-12] MEDS ORDERED: ZOFRAN4 MG ORAL (20:35)
--- NOTE | 2019-04-12 21:03 | NUR ---
ED Nurse Note: Patient cleared for discharge. Patient verbalized understanding of discharge instructions. ID band removed, IV removed. Patient departed with all belongings to home via an Uber.
[2019-04-12 21:11] VITALS: BP 90/55
--- NOTE | 2019-04-15 16:54 | Cardiology Report ---
APPROVED REPORT EKG Measurement Heart [id number] Normal sinus rhythm Normal ECG
== END 2019-04-12 21:14 | disposition home or self-care (01) ==
LOC: EDBD 18:32 → EMR 18:50
DX: K85.20 Alcohol induced acute pancreatitis without necrosis or infection (principal); R10.13 Epigastric pain; F10.920 Alcohol use, unspecified with intoxication, uncomplicated; I10 Essential (primary) hypertension; Z85.47 Personal history of malignant neoplasm of testis; K74.60 Unspecified cirrhosis of liver
CPT/HCPCS: 36415; 74177; 80053; 83690; 85025; 93005; 96361; 96374; 96375; 96376; G0480; J2270; J2765; Q9967; S0028; Z7502; 99284; J7030

== ENCOUNTER 2019-04-13 18:43 | Emergency (ER) | payer OTHER ==
[~2019-04-13] VITALS: Ht 165.1 cm; Wt 68.0 kg
[~2019-04-13 18:43] MED LIST changes: +ZOFRAN4 MG ORAL
[2019-04-13 19:02] VITALS: BP 118/81
--- NOTE | 2019-04-13 19:09 | NUR ---
ED Nurse Note:pt. was BIBA from sober living with ETOH and dizziness, A/Ox3 VSS, placed on hall monitor, given IV fluids and meds
[2019-04-13] MEDS ORDERED: Ketorolac 30mg Inj IV ONE (19:15)
--- NOTE | 2019-04-13 19:15 | NUR ---
ED Nurse Note: Received report from Georgiana BRAVO. Pt alert, oriented. No SOB. Breathing even and unlabored. Afebrile. On NS 1L, patent and infusing well.
--- NOTE | 2019-04-13 20:37 | Emergency Room Report ---
History of Present Illness General Chief Complaint: Dizziness Source: Patient, EMS Present Illness HPI 39-year-old male with history of alcoholic abuse as well as alcoholic pancreatitis who has been [facility] several times as well as yesterday brought in by the paramedics due to dizziness secondary to alcohol consumption. Patient admits to drinking the same vodka today prior to arrival. Extensive work-up was done on patient yesterday including abdominal CT scan to compare to previous scans as well as blood work. Patient denies any new symptoms, denies chest pain, shortness of breath, palpitation, nausea vomiting. Has not taken medication for symptom relief. Patient appears stable with stable vital signs. It is not necessary to repeat blood work. Denies suicidal homicidal ideation. Allergies: Coded Allergies: No Known Allergies (Unverified , 02/28/15) Patient History Past Medical History: see triage record Past Surgical History: unable to obtain Pertinent Family History: none Social History: Reports: alcohol use Immunizations: UTD Reviewed Nursing Documentation: PMH: Agreed; PSxH: Agreed Nursing Documentation-PMH Hx Cardiac Problems: No Hx Hypertension: Yes Hx Cancer: Yes - TESTICULAR STAGE 2 Hx Gastrointestinal Problems: Yes - GI VARICES, GI BLEED, LIVR CIRRHOSIS Hx Neurological Problems: No Review of Systems All Other Systems: negative except mentioned in HPI Physical Exam Vital Signs Date Time Temp Pulse Resp B/P (MAP) Pulse Ox O2 Delivery O2 Flow Rate FiO2 04/13/19 18:35 98.8 91 18 123/82 (96) 98 Room Air Sp02 EP Interpretation: reviewed, normal General Appearance: no apparent distress, alert, GCS 15, non-toxic Head: normocephalic, atraumatic Eyes: bilateral eye normal inspection, bilateral eye PERRL ENT: hearing grossly normal, normal pharynx, no angioedema, normal voice Neck: full range of motion, supple/symm/no masses Respiratory: chest non-tender, lungs clear, normal breath sounds, no rhonchi, speaking full sentences Cardiovascular #1: normal inspection, no murmur Gastrointestinal: no organomegaly, no peritonitis, no bruit Genitourinary: no CVA tenderness Musculoskeletal: back normal, gait/station normal, normal range of motion, non- tender Neurologic: alert, oriented x3, responsive, motor strength/tone normal, sensory intact, speech normal Psychiatric: judgement/insight normal, memory normal, mood/affect normal, no suicidal/homicidal ideation Skin: no rash Lymphatic: no adenopathy Medical Decision Making PA Attestation Diagnosis and treatment plans were reviewed and discussed with my supervising physician Dr. Santamaria Diagnostic Impression: Primary Impression: Alcohol intoxication ER Course 39-year-old male with history of alcoholic abuse as well as alcoholic pancreatitis who has been [facility] several times as well as yesterday brought in by the paramedics due to dizziness secondary to alcohol consumption. Patient admits to drinking the same vodka today prior to arrival. Extensive work-up was done on patient yesterday including abdominal CT scan to compare to previous scans as well as blood work. Patient denies any new symptoms, denies chest pain, shortness of breath, palpitation, nausea vomiting. Has not taken medication for symptom relief. Patient appears stable with stable vital signs. It is not necessary to repeat blood work. Denies suicidal homicidal ideation. Ddx considered but are not limited to: Alcohol withdrawal, alcohol intoxication , generalized anxiety disorder, panic attack, depression with psychotic feature , bipolar disorder, drug overdose Vital signs: are WNL, pt. is afebrile H&PE are most consistent with: Alcohol intoxication ORDERS: none required at this time, the diagnosis is clinical ED INTERVENTIONS: NS bolus, Zofran, Pepcid, Toradol DISCHARGE: At this time pt. is stable for d/c to home. Will provide printed patient care instructions, and any necessary prescriptions. Care plan and follow up instructions have been discussed with the patient prior to discharge. Patient to follow-up with her primary care provider. At this time no further imaging. Patient wanted to stay longer. However was escorted out. Last Vital Signs Date Time Temp Pulse Resp B/P (MAP) Pulse Ox O2 Delivery O2 Flow Rate FiO2 04/13/19 19:51 98.8 04/13/19 19:08 85 18 Room Air 04/13/19 19:02 118/81 98 Disposition: HOME, SELF-CARE Condition: Stable Referrals: [facility],REFERRING (PCP) Patient Instructions: Alcohol Intoxication, [id number] Ezequiel Villagomez Apr 13, 2019 20:37
[2019-04-13 20:47] VITALS: BP 120/79
--- NOTE | 2019-04-13 20:47 | NUR ---
ED Nurse Note: Pt cleared by ERMD for discharge. DC instructions was given and explained to pt and verbalized understanding of teachings. All medical devices such as ID band adn IV line removed. Pt is AAO x4, ambulatory and left with all personal belongings.
== END 2019-04-13 20:47 | disposition home or self-care (01) ==
LOC: EDBD 18:43 → EMR 19:31
DX: F10.129 Alcohol abuse with intoxication, unspecified (principal); K74.60 Unspecified cirrhosis of liver; Z85.47 Personal history of malignant neoplasm of testis; I10 Essential (primary) hypertension
CPT/HCPCS: 96361; 96374; 96375; J1885; J2405; S0028; Z7502; 99284; J7030

== ENCOUNTER 2019-09-11 14:48 | Emergency (ER) | payer OTHER ==
[~2019-09-11] VITALS: Ht 172.7 cm; Wt 72.6 kg
[2019-09-11 15:00] VITALS: BP 100/69
[2019-09-11] MEDS ORDERED: Morphine Sulfate 4mg/ml Inj (IV USE ONLY) IVP ONE ×2 (15:00→16:45)
[2019-09-11] MEDS ORDERED: Ketorolac 30mg Inj IV ONE (15:00)
[2019-09-11] MEDS ORDERED: Mylanta II UD 30ml ORAL ONE (15:00)
--- NOTE | 2019-09-11 15:00 | NUR ---
ED Nurse Note: brought in by ambulance from long term ([facility]) c/o lower abdonimal pain x1 month and etoh. pt report nvd x 1 week; denies nvd at the moment. patient ao4 nad vss. ambulates with steady gait. changed into gown; attached to monitor; safety measures met. iv access established. blood collected; sent down to lab. unable to collected urine at this time; patient states he will provide when able. discussed plan of care, pt compliant. denies homelessness.
[2019-09-11] MEDS ORDERED: chlordiazePOXIDE 25mg Cap ORAL ONE (15:15)
[2019-09-11] MEDS ORDERED: FAMOTIDINE20 MG ORAL (15:26)
--- NOTE | 2019-09-11 15:27 | Emergency Room Report ---
History of Present Illness General Chief Complaint: Abdominal Pain Source: Patient, EMS Present Illness HPI 39-year-old male presents with acute abdominal pain after drinking a bottle of soju, patient endorses burning pain aggravated with alcohol leaving factors not drinking alcohol severity is mild, constant started today, no fevers chills he [place] some nausea no vomiting, no chest pain or shortness of breath patient presents for evaluation he abuses alcohol Allergies: Coded Allergies: No Known Allergies (Unverified , 02/28/15) COVID-19 Screening Contact w/high risk pt: No Recent Travel to affected area: No Experienced COVID-19 symptoms?: No Patient History Past Medical History: see triage record Social History: Reports: alcohol use Reviewed Nursing Documentation: PMH: Agreed; PSxH: Agreed Nursing Documentation-PMH Hx Cardiac Problems: No Hx Hypertension: Yes Hx Cancer: Yes - TESTICULAR STAGE 2 Hx Gastrointestinal Problems: Yes - GI VARICES, GI BLEED, LIVR CIRRHOSIS Hx Neurological Problems: No Review of Systems All Other Systems: negative except mentioned in HPI Physical Exam Vital Signs Date Time Temp Pulse Resp B/P (MAP) Pulse Ox O2 Delivery O2 Flow Rate FiO2 09/11/19 14:43 98.1 120 18 100/69 (79) 98 Room Air Sp02 EP Interpretation: reviewed, normal General Appearance: well appearing, no apparent distress, alert Head: normocephalic, atraumatic Eyes: bilateral eye PERRL, bilateral eye EOMI ENT: uvula midline, moist mucus membranes Neck: supple, thyroid normal, supple/symm/no masses Respiratory: lungs clear, no respiratory distress, no retraction, no accessory muscle use Cardiovascular #1: normal peripheral pulses, regular rate, rhythm, no edema, no gallop, no murmur Gastrointestinal: soft, no guarding, no rebound, tenderness - Mild tenderness to palpation epigastrically Musculoskeletal: normal inspection Neurologic: alert, oriented x3 Psychiatric: mood/affect normal Skin: no rash, warm/dry Medical Decision Making Diagnostic Impression: Primary Impression: Acute alcoholic intoxication Qualified Codes: F10.920 - Alcohol use, unspecified with intoxication, uncomplicated Additional Impression: Alcoholic gastritis Qualified Codes: K29.20 - Alcoholic gastritis without bleeding ER Course 39-year-old male presents with abdominal pain differential diagnosis includes appendicitis diverticulitis, alcoholic gastritis Patient presents most likely with alcohol induced gastritis patient felt better with pain control, fluid hydration labs unremarkable Patient provided resources for alcohol cessation Patient was allowed to sober Disposition home with return precautions follow-up with PCP Laboratory Tests Test 09/11/19 15:15 09/11/19 16:20 White Blood Count 6.0 K/UL (4.8-10.8) Red Blood Count 4.47 M/UL (4.70-6.10) L Hemoglobin 14.1 G/DL (14.2-18.0) L Hematocrit 41.6 % (42.0-52.0) L Mean Corpuscular Volume 93 FL (80-99) Mean Corpuscular Hemoglobin 31.5 PG (27.0-31.0) H Mean Corpuscular Hemoglobin Concent 33.9 G/DL (32.0-36.0) Red Cell Distribution Width 12.4 % (11.6-14.8) Platelet Count 127 K/UL (150-450) L Mean Platelet Volume 8.1 FL (6.5-10.1) Neutrophils (%) (Auto) 46.9 % (45.0-75.0) Lymphocytes (%) (Auto) 43.2 % (20.0-45.0) Monocytes (%) (Auto) 7.3 % (1.0-10.0) Eosinophils (%) (Auto) 0.9 % (0.0-3.0) Basophils (%) (Auto) 1.6 % (0.0-2.0) Sodium Level 144 MMOL/L (136-145) Potassium Level 3.6 MMOL/L (3.5-5.1) Chloride Level 106 MMOL/L (98-107) Carbon Dioxide Level 23 MMOL/L (21-32) Anion Gap 15 mmol/L (5-15) Blood Urea Nitrogen 19 mg/dL (7-18) H Creatinine 0.9 MG/DL (0.55-1.30) Estimated Glomerular Filtration Rate > 60 mL/min (>60) Glucose Level 134 MG/DL (74-106) H Calcium Level 9.4 MG/DL (8.5-10.1) Total Bilirubin 0.5 MG/DL (0.2-1.0) Aspartate Amino Transferase (AST) 100 U/L (15-37) H Alanine Aminotransferase (ALT) 60 U/L (12-78) Alkaline Phosphatase 76 U/L (46-116) Total Protein 8.3 G/DL (6.4-8.2) H Albumin 4.5 G/DL (3.4-5.0) Globulin 3.8 g/dL Albumin/Globulin Ratio 1.2 (1.0-2.7) Lipase 201 U/L (73-393) Urine Opiates Screen Pending Urine Barbiturates Screen Pending Phencyclidine (PCP) Screen Pending Urine Amphetamines Screen Pending Urine Benzodiazepines Screen Pending Urine Cocaine Screen Pending Urine Marijuana (THC) Screen Pending Last Vital Signs Date Time Temp Pulse Resp B/P (MAP) Pulse Ox O2 Delivery O2 Flow Rate FiO2 09/11/19 14:43 98.1 120 18 100/69 (79) 98 Room Air Disposition: HOME, SELF-CARE Condition: Stable Scripts Famotidine* (Pepcid 20mg tablet*) 20 Mg Tablet 20 MG ORAL TWICE A DAY, #60 TAB 0 Refills Prov: Jeremiah Santamaria MD 09/11/19 [facility] Patient Instructions: Alcohol Use Disorder, Gastritis, Adult Additional Instructions: The patient was provided with discharge instructions, notified to follow-up with a primary care doctor and or specialist in the next 24-48 hours, and to return to the ED if they have worsening of their symptoms. Please note that this report is being documented using [employer] technology. This can lead to erroneous entry secondary to incorrect interpretation by the dictating instrument. Jeremiah Santamaria MD Sep 11, 2019 15:27
[2019-09-11 15:58] LABS: BASOPHILS % (AUTO) 1.6 % (0.0-2.0); EOSINOPHILS % (AUTO) 0.9 % (0.0-3.0); HEMATOCRIT 41.6 % (42.0-52.0); HEMOGLOBIN 14.1 G/DL (14.2-18.0); LYMPHOCYTES % (AUTO) 43.2 % (20.0-45.0); MEAN CORPUSCULAR VOLUME 93 FL (80-99); MONOCYTES % (AUTO) 7.3 % (1.0-10.0); NEUTROPHILS % (AUTO) 46.9 % (45.0-75.0); PLATELET COUNT 127 K/UL (150-450); RED BLOOD COUNT 4.47 M/UL (4.70-6.10); RED CELL DISTRIBUTION WIDTH 12.4 % (11.6-14.8)
[2019-09-11 16:10] LABS: ANION GAP 15 mmol/L (5-15); BLOOD UREA NITROGEN 19 mg/dL (7-18); CALCIUM 9.4 MG/DL (8.5-10.1); CARBON DIOXIDE 23 MMOL/L (21-32); CHLORIDE 106 MMOL/L (98-107); CREATININE 0.9 MG/DL (0.55-1.30); POTASSIUM 3.6 MMOL/L (3.5-5.1); SODIUM 144 MMOL/L (136-145)
[2019-09-11 16:15] LABS: ALANINE AMINOTRANSFERASE 60 U/L (12-78); ALBUMIN 4.5 G/DL (3.4-5.0); ALBUMIN/GLOBULIN RATIO 1.2 (1.0-2.7); ALKALINE PHOSPHATASE 76 U/L (46-116); ASPARTATE AMINO TRANSFERASE 100 U/L (15-37); BILIRUBIN,TOTAL 0.5 MG/DL (0.2-1.0)
--- NOTE | 2019-09-11 16:30 | NUR ---
ED Nurse Note: pt reports pain has returned. notified ermd. received medication orders; noted and carried out. provided patient with warm blankets and repositioned for comfort.
[2019-09-11 16:49] VITALS: BP 118/71
[2019-09-11 17:00] VITALS: BP 114/69
--- NOTE | 2019-09-11 17:00 | NUR ---
ER DISCHARGE NOTE: patient states he feels better and is ready for discharge. patient states he will call [employer] back home. Patient is cleared to be discharged per ERMD, pt is aox4, on room air, with stable vital signs. pt was given dc and prescription instructions, pt was able to verbalize understanding, pt id band and iv site removed without complications. pt is able to ambulate with steady gait. pt took all belongings.
== END 2019-09-11 17:00 | disposition home or self-care (01) ==
LOC: EDBD 14:48 → EMR 15:14
DX: F10.129 Alcohol abuse with intoxication, unspecified (principal); K29.20 Alcoholic gastritis without bleeding; I10 Essential (primary) hypertension; K74.60 Unspecified cirrhosis of liver; Z85.47 Personal history of malignant neoplasm of testis
CPT/HCPCS: 36415; 80053; 80307; 83690; 85025; 96361; 96374; 96375; 96376; J1885; J2270; J2405; J7030; S0028; Z7502; 99284

== ENCOUNTER 2019-12-02 20:36 | Emergency (ER) | payer OTHER ==
[~2019-12-02] VITALS: Ht 170.2 cm; Wt 72.6 kg
[~2019-12-02 20:36] MED LIST changes: +FAMOTIDINE20 MG ORAL
--- NOTE | 2019-12-02 21:00 | Emergency Room Report ---
History of Present Illness General Chief Complaint: Behavioral Complaint Present Illness HPI Patient is a 39-year-old male brought in by EMS after increased generalized depression after recent alcohol intake. Reportedly patient had previously stated that he wanted to harm himself. He currently denies any suicidal thoughts. Prior history of alcohol abuse and states he intermittently take Librium. Denies any current complaints. Allergies: Coded Allergies: No Known Allergies (Unverified , 02/28/15) COVID-19 Screening Contact w/high risk pt: No Recent Travel to affected area: No Experienced COVID-19 symptoms?: No COVID-19 Testing performed BREWERY PUMPER: No Patient History Past Medical History: see triage record Reviewed Nursing Documentation: PMH: Agreed; PSxH: Agreed Nursing Documentation-PMH Hx Cardiac Problems: No Hx Hypertension: Yes Hx Cancer: Yes - TESTICULAR STAGE 2 Hx Gastrointestinal Problems: Yes - GI VARICES, GI BLEED, LIVR CIRRHOSIS Hx Neurological Problems: No Review of Systems All Other Systems: negative except mentioned in HPI Physical Exam Vital Signs Date Time Temp Pulse Resp B/P (MAP) Pulse Ox O2 Delivery O2 Flow Rate FiO2 12/02/19 20:35 99.0 89 18 122/77 (92) 99 Room Air Sp02 EP Interpretation: reviewed, normal General Appearance: normal inspection, well appearing, no apparent distress, alert, GCS 15 Head: atraumatic, other - Healing lacerations to the left side of his face ENT: normal ENT inspection, hearing grossly normal, normal voice Neck: normal inspection, full range of motion, supple, no bony tend Respiratory: normal inspection, lungs clear, normal breath sounds, no respiratory distress, no retraction, no wheezing Cardiovascular #1: regular rate, rhythm, no edema Gastrointestinal: normal inspection, normal bowel sounds, non tender, soft, no guarding, no hernia Genitourinary: no CVA tenderness Musculoskeletal: normal inspection, back normal, normal range of motion Neurologic: alert, motor strength/tone normal, loader demolder III-XII nml as tested, oriented x3, responsive, speech normal, normal inspection Psychiatric: normal inspection, judgement/insight normal, mood/affect normal Medical Decision Making Diagnostic Impression: Primary Impression: Acute alcoholic intoxication ER Course Patient presented for recent alcohol use. Differential diagnosis include was not limited to alcohol tox occasion, depression, psychosis among others. Patient has a benign exam and does not appear to require any imaging or laboratory testing at this time. Patient was awake and alert. He denied any suicidal thoughts on direct questioning. Patient will be observed in the emergency department until sober. Last Vital Signs Date Time Temp Pulse Resp B/P (MAP) Pulse Ox O2 Delivery O2 Flow Rate FiO2 12/02/19 20:35 99.0 89 18 122/77 (92) 99 Room Air Status: improved Disposition: HOME, SELF-CARE Condition: Stable Colby Lopez MD Dec 02, 2019 21:00
[2019-12-02 23:00] VITALS: BP 129/84
[2019-12-03 02:30] VITALS: BP 134/72
[2019-12-03 04:40] VITALS: BP 119/77
[2019-12-03 05:30] VITALS: BP 134/72
== END 2019-12-03 05:30 | disposition home or self-care (01) ==
LOC: EDBD 20:36 → EMR 21:07
DX: F10.129 Alcohol abuse with intoxication, unspecified (principal); I10 Essential (primary) hypertension; Z85.47 Personal history of malignant neoplasm of testis; K74.60 Unspecified cirrhosis of liver
CPT/HCPCS: 99282

== ENCOUNTER 2019-12-03 12:37 | Emergency (ER) | payer OTHER ==
[~2019-12-03] VITALS: Ht 167.6 cm; Wt 63.5 kg
--- NOTE | 2019-12-03 12:58 | Emergency Room Report ---
History of Present Illness General Chief Complaint: Alcohol Intoxication Source: Patient Present Illness HPI Disclaimer: Please note that this report is being documented using [employer] technology. This can lead to erroneous entry secondary to incorrect interpretation by the dictating instrument. HPI: This a 39-year-old male history of alcohol and substance abuse presenting for acute intoxication. The patient states he is withdrawing from alcohol and is asking for benzodiazepines. States he has been on Librium in the past. He denies any SI/HI. Seen here yesterday with similar complaints. States he has been in rehab programs in the past but not currently. He states he has a clinical social worker who keeps his Librium prescriptions. He was unable to meet them today because he had relapsed and was drinking. He denies any other complaints at this time. PMH: Alcohol abuse, cocaine abuse PSH: Reviewed Allergies: Denied Social Hx: Alcohol and cocaine abuse Allergies: Coded Allergies: No Known Allergies (Unverified , 02/28/15) COVID-19 Screening Contact w/high risk pt: No Recent Travel to affected area: No Experienced COVID-19 symptoms?: No COVID-19 Testing performed WRECKER OPERATOR: No Nursing Documentation-PMH Past Medical History: No History, Except For Hx Cardiac Problems: No Hx Hypertension: Yes Hx Cancer: Yes - TESTICULAR STAGE 2 Hx Gastrointestinal Problems: Yes - GI VARICES, GI BLEED, LIVR CIRRHOSIS History Of Psychiatric Problem: Yes - substance abuse Hx Neurological Problems: No Review of Systems All Other Systems: negative except mentioned in HPI Physical Exam Vital Signs Date Time Temp Pulse Resp B/P (MAP) Pulse Ox O2 Delivery O2 Flow Rate FiO2 12/03/19 12:32 98.2 92 18 132/82 (99) 98 Room Air General: Awake and alert, no acute distress HEENT: NC/AT. EOMI. Cardiovascular: RRR. S1 and S2 normal. No murmur appreciated Resp: Normal work of breathing. No cough, wheezing or crackles appreciated Abdomen: Abdomen is soft, nondistended. Nontender Skin: Intact. No abrasions, laceration or rash over the exposed skin MSK: Normal tone and bulk. Moving all extremities. No obvious deformity. Neuro: Awake and alert. Mentating appropriately. Reports depression but denies SI/HI. Medical Decision Making Diagnostic Impression: Primary Impression: Alcohol intoxication ER Course This a 39-year-old male history of alcohol abuse presenting for acute relapse. Patient admits to drinking alcohol but denies drug use. He denies SI/HI though does report depression. He is well-appearing, coherent, thinking clearly. He is requesting medication for tremors, anxiety as he is not able to obtain his Librium which is being kept by his nurse case management. He is currently in the process of going back to a rehab facility. Will obtain basic labs to evaluate for electrolyte abnormalities, tox screen and serum alcohol level. We have a small dose of Ativan to treat the patient's symptoms and is not of signs of severe withdrawal at this time. 1400: Labs within normal limits as some slightly low potassium which was repleted with oral medication. Feeling better after receiving Ativan. He is alcohol level is 235 but clinically does not show signs of intoxication or impairment. He can be discharged once he is monitored in the ER a little bit longer. Follow -up with his nurse case management for establishment of rehab/detox services. Laboratory Tests Test 12/03/19 13:30 Sodium Level 145 MMOL/L (136-145) Potassium Level 3.2 MMOL/L (3.5-5.1) L Chloride Level 107 MMOL/L (98-107) Carbon Dioxide Level 26 MMOL/L (21-32) Anion Gap 12 mmol/L (5-15) Blood Urea Nitrogen 18 mg/dL (7-18) Creatinine 1.0 MG/DL (0.55-1.30) Estimated Glomerular Filtration Rate > 60 mL/min (>60) Glucose Level 144 MG/DL (74-106) H Calcium Level 8.2 MG/DL (8.5-10.1) L Urine Opiates Screen Negative (NEGATIVE) Urine Barbiturates Screen Negative (NEGATIVE) Phencyclidine (PCP) Screen Negative (NEGATIVE) Urine Amphetamines Screen Negative (NEGATIVE) Urine Benzodiazepines Screen Positive (NEGATIVE) H Urine Cocaine Screen Negative (NEGATIVE) Urine Marijuana (THC) Screen Negative (NEGATIVE) Serum Alcohol 235 mg/dL Last Vital Signs Date Time Temp Pulse Resp B/P (MAP) Pulse Ox O2 Delivery O2 Flow Rate FiO2 12/03/19 12:32 98.2 92 18 132/82 (99) 98 Room Air Disposition: HOME, SELF-CARE Condition: Stable Romulo Wilson MD Dec 03, 2019 12:58
[2019-12-03 13:00] VITALS: BP 136/77
[2019-12-03] MEDS ORDERED: LORazepam 1mg tab ORAL ONE (13:00)
[2019-12-03 14:00] LABS: ANION GAP 12 mmol/L (5-15); BLOOD UREA NITROGEN 18 mg/dL (7-18); CALCIUM 8.2 MG/DL (8.5-10.1); CARBON DIOXIDE 26 MMOL/L (21-32); CHLORIDE 107 MMOL/L (98-107); POTASSIUM 3.2 MMOL/L (3.5-5.1); SODIUM 145 MMOL/L (136-145)
[2019-12-03 15:01] VITALS: BP 132/79
[2019-12-03 16:30] VITALS: BP 127/74
== END 2019-12-03 16:30 | disposition home or self-care (01) ==
LOC: EDBD 12:37 → EMR 12:57
DX: F10.129 Alcohol abuse with intoxication, unspecified (principal); I10 Essential (primary) hypertension; Z85.47 Personal history of malignant neoplasm of testis; K74.60 Unspecified cirrhosis of liver
CPT/HCPCS: 36415; 80048; 80307; G0480; Z7502; 99283; J8499